=== PATIENT | female | born 1950 | race Caucasian/White ===

== ENCOUNTER 2017-12-18 20:37 | Observation (INO) | payer OTHER, SELFPAY ==
[2017-12-18 21:02] VITALS: BP 125/75; PULSE 79; RESP 16; O2SAT 96
--- NOTE | 2017-12-18 21:03 | DI.RAD.S_ITS ---
PROCEDURE: XR CHEST 1V INDICATIONS: chest pain TECHNIQUE: One view of the chest was acquired. COMPARISON: None. FINDINGS: Surgical changes and devices: None. Lungs and pleura: No pleural effusions or pneumothorax. Lungs are clear. Mediastinum: Mediastinal contours appear normal. Heart size is normal. Bones and chest wall: No suspicious bony lesions. Overlying soft tissues appear unremarkable. IMPRESSION: No acute cardiopulmonary findings. Dictated by: Yandy Head M.D. on 12/18/2017 at 21:41 Approved by: Yandy Head M.D. on 12/18/2017 at 21:42
[2017-12-18 21:33] LABS: Alanine Aminotransferase 29 IU/L (9-52); Albumin 4.6 g/dL (3.5-5.0); Albumin Globulin Ratio 1.4 (1.0-2.8); Alkaline Phosphatase 60 U/L (38-126); Aspartate Aminotransferase 26 IU/L (14-36); BUN Creatinine Ratio 22.9 (6-22); Bilirubin Total 0.3 mg/dL (0.2-1.3); Blood Urea Nitrogen 16 mg/dL (7-17); Calcium 9.6 mg/dL (8.4-10.2); Carbon Dioxide 25 mmol/L (22-32); Chloride 103 mmol/L (98-107); Creatine Kinase 73 U/L (30-135); Estimated Glomerular Filt Rate > 60.0 mL/min (>60); Globulin 3.2 g/dL (1.7-4.1); Glucose 153 mg/dL (80-110); HEMOLYSIS < 15 (0-50); Lipase 203 U/L (23-300); Potassium 3.3 mmol/L (3.4-5.1); Sodium 145 mmol/L (137-145); Total Protein 7.8 g/dL (6.3-8.2)
--- NOTE | 2017-12-18 21:36 | PC.NURSE ---
at time of exam, pt is resting comfortable, denies pain or discomfort, sinus sebastian on monitor, lungs clear/equal, no periph edema present, abd soft/nontender
[2017-12-18 21:39] LABS: Add Manual Diff / Slide Review NO; Basophils Percent Auto 1.3 % (0-2); Eosinophils Percent Auto 3.9 % (2-4); Hematocrit 40.3 % (36-46); Hemoglobin 13.9 g/dL (12.0-16.0); Lymphocytes Percent Auto 46.3 % (25-40); Mean Corpuscular HGB Conc 34.4 % (30-36); Mean Corpuscular Hemoglobin 30.1 PG (26-34); Mean Corpuscular Volume 87.5 fL (80-100); Monocytes Percent Auto 6.3 % (3-14); Neutrophils Absolute Auto 2700 /uL (3000-5900); Neutrophils Percent Auto 42.2 % (50-75); Platelet Count 238 X10^3/uL (150-400); Red Blood Cell Count 4.61 X10^6/uL (4.0-5.2); Red Cell Distribution Width 13.3 % (11.6-14.8); White Blood Cell Count 6.3 X10^3/uL (4.5-11.0)
[2017-12-18 21:43] LABS: Troponin I < 0.012 ng/mL (0.01-0.034)
[2017-12-18 21:46] VITALS: BP 129/82; PULSE 72; RESP 18; O2SAT 99
[2017-12-18] MEDS: ASPIRIN 81 MG TAB 324 MG PO (21:47)
[2017-12-18] MEDS: SODIUM CHLORIDE 0.9% 1,000 ML 150 ML IV (21:47)
[2017-12-18 22:02] VITALS: BP 130/75; PULSE 65; RESP 20; O2SAT 99
--- NOTE | 2017-12-18 22:17 | ED_ITS ---
HPI - Chest Pain General Chief Complaint: Chest Pain Stated Complaint: CHEST PAIN,AND STATES DIAPHORETIC Time Seen by Provider: 12/18/17 20:41 Source: patient Mode of arrival: ambulatory Limitations: no limitations History of Present Illness HPI narrative: Patient presents to the emergency department today with her in the chief complaint retrosternal chest pressure with slight radiation to her left anterior chest and diaphoresis with near syncope just prior to her arrival. Her symptoms lasted approximately 15 min and were essentially gone prior to her arrival. She denies any provocation or palliation of her pain. She denies any history of cardiac disease but did have a stroke a few years ago and received tPA, and in the and it was determined to be more likely a complex migraine variant. As the result she does NOT take aspirin, beta blockers or other medications MD complaint: chest pain Onset (ago): minute(s) Duration: constant Onset: during rest Pain location: substernal Severity: moderate Quality: tightness and heaviness Pain radiation: none Relieving factors: nothing Exacerbating factors: nothing Associated symptoms: nausea, diaphoresis and other (near syncope) Treatments prior to arrival chest pain: none Related Data Home Medications Medication Instructions Recorded Confirmed amoxicillin-pot clavulanate PO 12/18/17 Allergies Allergy/AdvReac Type Severity Reaction Status Date / Time No Known Drug Allergies Allergy Verified 12/18/17 21:05 Review of Systems Review of Systems All systems reviewed & are unremarkable except as noted in HPI and below Constitutional Denies chills, Reports excessive sweating, Denies fever(s), Denies lethargy and Denies weakness Eyes Denies change in vision, Denies eye discharge, Denies irritation and Denies loss of vision ENT Ears, Nose, Mouth, and Throat: Denies change in voice, Denies neck pain and Denies sore throat Cardiovascular Reports chest pain, Reports chest pain at rest, Denies irregular heart rhythm, Reports lightheadedness, Denies palpitations, Reports dyspnea, Denies dyspnea on exertion and Denies orthopnea Respiratory Denies cough, Reports dyspnea, Denies dyspnea on exertion and Denies wheezing Gastrointestinal Gastrointestinal: Denies abdominal pain, Denies change in bowel habits, Denies diarrhea, Denies nausea and Denies vomiting Genitourinary Denies hematuria, Denies flank pain, Denies urinary incontinence and Denies urinary urgency Musculoskeletal Denies neck pain Integumentary/Breasts Denies pruritus, Denies erythema, Denies rash and Denies wounds Neurologic Denies confusion, Denies loss of vision and Denies weakness Psychiatric Denies anxiety, Denies confusion, Denies depression, Denies homicidal ideation and Denies suicidal ideation Endocrine Reports excessive sweating and Denies palpitations Hematologic/Lymphatic Denies easy bruising Allergic/Immunologic Denies wheezing PFSH Medical History CVA (cerebral vascular accident) (Acute) Dental abscess (Acute) HLD (hyperlipidemia) (Acute) Social History household members: spouse, family and children Smoking Status: Never smoker alcohol intake: current Exam Narrative Exam Narrative: Pleasant 67-year-old female resting comfortably, in no obvious distress Initial Vital Signs Initial Vital Signs: Vital Signs Pulse Rate 79 12/18/17 21:02 Respiratory Rate 16 12/18/17 21:02 Blood Pressure 125/75 H 12/18/17 21:02 Pulse Oximetry 96 12/18/17 21:02 Const General: cooperative and well developed Nutritional Appearance: well nourished Orientation: alert, awake, oriented x3 and not confused HENMT Head: normocephalic and atraumatic Ears: external ears normal and TM's normal bilaterally Nose: external nose normal and No nasal discharge Face and sinus: sinuses nontender, face symmetric, no sinus tenderness and No dry mucous membranes Mouth: oral mucosae normal and moist mucous membranes Teeth and gingiva: dentition normal Throat: tonsils normal and uvula midline Eyes General: appearance normal, both eyes and all related structures Eyelids: eyelids normal Conjunctivae: conjunctivae normal Sclera: sclerae normal Pupils: PERRL EOM: EOM intact bilaterally Resp Effort & Inspection: normal respiratory effort, able to speak in complete sentences, no respiratory distress and no use of accessory muscles Auscultation: clear to auscultation bilaterally, no rales, no rhonchi and no wheezes GI Inspection: non-distended Palpation: soft, no hepatosplenomegaly, No guarding, No pulsatile mass and No tender Auscultation: normal bowel sounds Skin General: no rashes or lesions noted, No jaundice and No petechiae Extrem General: full ROM, no clubbing, cyanosis or edema, no pedal edema and no calf tenderness Psych Appearance: well kempt Mental Status: mental status grossly normal Attitude: cooperative Thought Content: normal and suicidality Judgment: judgment good Course Orders Ordered: ED Orders 12/18/17 21:00 Complete Blood Count AUTO DIFF Stat Comprehensive Metabolic Panel Stat Lipase Stat Troponin with CK Cardiac Panel Stat 12/18/17 21:03 XR chest 1V Stat 12/18/17 21:15 EKG-12 Lead Routine 12/19/17 05:00 Troponin I Stat Sodium Chloride (Normal Saline 0.9%) 1,000 mls @ 150 mls/hr IV CONT GRAHAM Last Infusion: 12/18/17 22:54 Dose: 0 mls/hr Admin: 12/18/17 21:47 Dose: 150 mls/hr Discontinued Medications Aspirin (Aspirin Chew) 324 mg PO NOW ONE Stop: 12/18/17 21:04 Last Admin: 12/18/17 21:47 Dose: 324 mg Reevaluation(s) Reevaluation #1: patient continues to be pain free, will contact hospitalist Consultations Consultation #1: Dr. Montalvo happy to accept patient on his service Vital Signs - 8 hr 12/18/17 21:02 12/18/17 21:46 12/18/17 22:02 Temperature Pulse Rate 79 72 65 Respiratory Rate 16 18 20 Blood Pressure 125/75 H Blood Pressure [Right Arm] 129/82 H 130/75 H Pulse Oximetry 96 99 99 12/18/17 22:45 12/18/17 23:35 Temperature 97.8 F 97.6 F Pulse Rate 66 71 Respiratory Rate 16 18 Blood Pressure 144/78 H 122/73 H Blood Pressure [Right Arm] Pulse Oximetry 95 95 MDM - Chest Pain Differential Diagnosis Likely pneumothorax, stable angina, unstable angina pectoris, atypical chest pain, st elevation myocardial infarction, costochondritis, chest pain and biliary colic Lab Data Result diagrams: 12/18/17 21:00 12/18/17 21:00 Lab Results 12/18/17 12/18/17 Range/Units 21:00 21:00 WBC 6.3 (4.5-11.0) X10^3/uL RBC 4.61 (4.0-5.2) X10^6/uL Hgb 13.9 (12.0-16.0) g/dL Hct 40.3 (36-46) % MCV 87.5 (80-100) fL MCH 30.1 (26-34) PG MCHC 34.4 (30-36) % RDW 13.3 (11.6-14.8) % Plt Count 238 (150-400) X10^3/uL Neut % (Auto) 42.2 L (50-75) % Lymph % (Auto) 46.3 H (25-40) % [place] % (Auto) 6.3 (3-14) % Eos % (Auto) 3.9 (2-4) % Baso % (Auto) 1.3 (0-2) % Neut # (Auto) 2700 L (2098-2317) /uL Sodium 145 (137-145) mmol/L Potassium 3.3 L (3.4-5.1) mmol/L Chloride 103 (98-107) mmol/L Carbon Dioxide 25 (22-32) mmol/L BUN 16 (7-17) mg/dL Creatinine 0.70 (0.52-1.04) mg/dL Estimated GFR > 60.0 (>60) mL/min BUN/Creatinine Ratio 22.9 H (6-22) Glucose 153 H (80-110) mg/dL Calcium 9.6 (8.4-10.2) mg/dL Total Bilirubin 0.3 (0.2-1.3) mg/dL AST 26 (14-36) IU/L ALT 29 (9-52) IU/L Alkaline Phosphatase 60 (38-126) U/L Total Creatine Kinase 73 (30-135) U/L Troponin I < 0.012 (0.01-0.034) ng/mL Total Protein 7.8 (6.3-8.2) g/dL Albumin 4.6 (3.5-5.0) g/dL Globulin 3.2 (1.7-4.1) g/dL Albumin/Globulin Ratio 1.4 (1.0-2.8) Lipase 203 (23-300) U/L Imaging Data Chest x-ray: Radiologist's impression: PROCEDURE: XR CHEST 1V INDICATIONS: chest pain TECHNIQUE: One view of the chest was acquired. COMPARISON: None. FINDINGS: Surgical changes and devices: None. Lungs and pleura: No pleural effusions or pneumothorax. Lungs are clear. Mediastinum: Mediastinal contours appear normal. Heart size is normal. Bones and chest wall: No suspicious bony lesions. Overlying soft tissues appear unremarkable. IMPRESSION: No acute cardiopulmonary findings. Dictated by: Yandy Head M.D. on 12/18/2017 at 21:41 Approved by: Yandy Head M.D. on 12/18/2017 at 21:42 ECG Data Attestation: I personally reviewed and interpreted this ECG as follows: Prior ECG tracings: not available for review Interpretation: EKG is normal sinus rhythm and free of any signs of ischemia or ectopy. MDM Narrative Medical decision making narrative: HEART Pathway for Early Discharge in Acute Chest Pain from [facility] on 12/19/2017 All calculations should be rechecked by clinician prior to use RESULT SUMMARY: 4 points HEART Pathway Score High risk 12?65% 30-day MACE Admit to hospital or observation. Further testing indicated. INPUTS: History ?> 2 = Highly suspicious EKG ?> 0 = Normal Age ?> 2 = ?65 Risk factors ?> 0 = No known risk factors Initial troponin ?> 0 = ?normal limit Discharge Plan Departure Patient Disposition: Admitted as Observation Clinical Impression: Chest pain, Acute hypokalemia Discharge Date/Time: 12/18/17 22:52 Interventions: ED Discharge Assessment Last Done: 12/18/17 22:52 Admit Date/Time: 12/18/17 22:24 Admit Provider: Mane Montalvo
[2017-12-18 22:45] VITALS: BP 144/78; PULSE 66; RESP 16; TEMP 36.6; O2SAT 95
[2017-12-18 23:35] VITALS: BP 122/73; PULSE 71; RESP 18; TEMP 36.4; O2SAT 95
--- NOTE | 2017-12-18 23:50 | PC.NURSE ---
ADMISSION Received pt at approximately 2245 via [employer], accompanied by ED RN. gina Berumen cooperative. SBA with ambulation. pt currently denies any chest pain or shortness or breath. telemetry monitoring maintained, SB per report from ED RN. pt oriented to room and call light.
[2017-12-19 04:35] VITALS: BP 116/70; PULSE 76; RESP 20; TEMP 36.1; O2SAT 97
[2017-12-19 06:17] LABS: Troponin I < 0.012 ng/mL (0.01-0.034)
[2017-12-19 08:00] VITALS: BP 128/79; PULSE 59; RESP 18; TEMP 36.3; O2SAT 100
[2017-12-19] MEDS: SODIUM CHLORIDE 0.9% 1,000 ML 150 ML IV (08:08)
--- NOTE | 2017-12-19 09:15 | P.HP_ITS ---
History of Present Illness Date Patient Seen: 12/19/17 Time Patient Seen: 08:30 Chief complaint: CHEST PAIN,AND STATES DIAPHORETIC Narrative: The patient is visiting her children and new grandchild locally, residing most of the time in [place], having just bought a house here over the weekend with her , and had just finished eating dinner at a local restaurant when she experienced 7/10 central chest pressure, radiating to her back with associated diaphoresis. There was no shortness of breath, nausea or exertional symptoms though she felt like she might need to have diarrhea, though has not had any diarrheal symptoms. She excused herself to go to the bathroom where symptoms lasted about 10 min before abating completely. Her was driving her back to the hotel and decided to take her to the emergency department for evaluation. She has not had similar chest pain episodes in the past though has had several episodes of vasovagal syncope after eating meals. She states a history of thrombolytic therapy last year, 3 weeks after her mother's , after presenting with stroke-like symptoms, which she had left facial weakness, left arm weakness and speech difficulty. She states that after thrombolytics therapy she was found to have a small narrowing, though there was some controversy as to whether she may have had an atypical migraine, however supportive of stroke she had ongoing left arm weakness several months and word-finding difficulty lasting to the present time. Emergency department evaluation was unremarkable. She has had no further chest pain overnight since admission on observation status. Patient History Medical History CVA (cerebral vascular accident) (Acute) Dental abscess (Acute) HLD (hyperlipidemia) (Acute) Family & Social History Family History: Reviewed 12/19/17 by Antwan Ramesh MD Social History: household members spouse,family,children Prior Living Arrangements House Safety & Behavioral: Feels Safe in Current Yes Environment Been Physically Hurt or No Threatened By a Person Suicidal Ideation Description None Tobacco & Substance use: Smoking Status Never smoker alcohol intake current alcohol intake frequency 0-2 drinks per day Substance Use Type does not use Meds Home Medications Medication Instructions Recorded Confirmed Type amoxicillin-pot clavulanate 1 dose PO DIRECTED 12/18/17 12/19/17 History Allergies Allergy/AdvReac Type Severity Reaction Status Date / Time No Known Drug Allergies Allergy Verified 12/18/17 21:05 Review of Systems Review of Systems All systems reviewed & are unremarkable except as noted in HPI and below ENT Ears, Nose, Mouth, and Throat: Yes dental pain Exam Vital Signs (past 8 hours): Vital Signs - 8 hr 3 12/19/17 04:35 12/19/17 08:00 Temperature 97 F L 97.4 F L Pulse Rate 76 59 L Respiratory Rate 20 18 Blood Pressure 116/70 128/79 H Pulse Oximetry 97 100 Pulse Oximetry 100 Oxygen Delivery Method Room Air Narrative Exam Narrative: General: Healthy-appearing female, appears comfortable in no apparent distress HEENT: Pupils equal round reactive, extraocular moves intact, mucous membranes pink and moist Neck: Supple, no audible res Lungs: Clear to auscultation Cardiac: Regular rate and rhythm, with grade 1 to 2/6 systolic ejection murmur at right upper sternal border Abdomen: Soft, nontender, nondistended Extremities: Without edema Vascular: 2+ DP/PT pulses Neurologic: Alert, oriented, normal facial symmetry, cranial nerves 2-12, motor , sensory, cerebellar grossly nonfocal, gait not tested Dermatologic: No rash or skin lesions Objective Imaging Chest x-ray: Radiologist's impression: No acute cardiopulmonary findings. ECG: Sinus rhythm at 73 beats per minute, nonspecific T-wave changes, no acute ischemic changes Exercise tolerance test: Patient exercised 9 min 26 sec, stopping due to dyspnea, with peak heart rate 153 beats per minute (100% of predicted), with no chest pain, ischemic changes or arrhythmias. Impression: Normal exercise tolerance test with excellent exercise capacity, and no reproducible symptoms. Labs Result Diagrams: 12/18/17 21:00 12/18/17 21:00 Labs: Laboratory Results - last 24 hr 12/18/17 12/18/17 12/19/17 21:00 21:00 05:35 WBC 6.3 RBC 4.61 Hgb 13.9 Hct 40.3 MCV 87.5 MCH 30.1 MCHC 34.4 RDW 13.3 Plt Count 238 Neut % (Auto) 42.2 L Lymph % (Auto) 46.3 H [place] % (Auto) 6.3 Eos % (Auto) 3.9 Baso % (Auto) 1.3 Neut # (Auto) 2700 L Sodium 145 Potassium 3.3 L Chloride 103 Carbon Dioxide 25 BUN 16 Creatinine 0.70 Estimated GFR > 60.0 BUN/Creatinine Ratio 22.9 H Glucose 153 H Calcium 9.6 Total Bilirubin 0.3 AST 26 ALT 29 Alkaline Phosphatase 60 Total Creatine Kinase 73 Troponin I < 0.012 < 0.012 Total Protein 7.8 Albumin 4.6 Globulin 3.2 Albumin/Globulin Ratio 1.4 Lipase 203 Assessment & Plan (1) HLD (hyperlipidemia): Current visit: No Status: Acute (2) Dental abscess: Current visit: No Status: Acute (3) CVA (cerebral vascular accident): Current visit: No Status: Acute Plan: 1. Chest pain, likely due to associated vasovagal reaction. The patient has had several similar episodes in the past, and likely had associated gastroesophageal reflux disease and/or esophageal spasm accounting for her symptoms. She has ruled out for myocardial infarction and has a normal maximal stress test today with no inducible changes or reproducible symptoms. She is medically clear for discharge with outpatient follow-up to her primary care provider. 2. Cerebrovascular disease. She has elected not to take aspirin or statin therapy. These are offered at this point but she declines and wishes to follow up with her primary care provider to review. 3. Dental abscess. Does not appear related to current symptoms. Continue antibiotics as prescribed. 4. Disposition: The patient is admitted to observation status. She is discharged home on her usual medications to follow up with her primary care provider in [place] [facility] upon her return. She is cleared medically to resume her usual activities Quality VTE Deep Vein Thrombosis/Pulmonary Embolism Present on Admission: No
--- NOTE | 2017-12-19 10:21 | CM.DANOTE ---
DCP/Assessment: Reviewed chart. Patient is a 67yr old female admitted under OBS status to [facility] with chest pain. Primary payor is 1)[employer]. PCP is Dr. Krishnan in [place]. Met with patient explained CM/SW role. Patient alert and oriented at time of visit. Pt. reports that she is completely I in all ADL's. Patient resides in [place] with her spouse/[place]. Pt. visiting her son and his family for the weekend. Patient initially planned to return to [place] today. Pt. undergoing stress test today, if negative it is anticipated that patient will discharge. Patient reports that her son can pick her up and she does not anticipate any d/c planning needs. P: Home today if stable. KOLBY Marquez
--- NOTE | 2017-12-19 10:41 | PC.NURSE ---
Day shift: Pt off unit for cardiac test at approx 1025. VS stable. Bryan HR 55. No chest pain and no nausea. Taken down in WC by
--- NOTE | 2017-12-19 10:55 | PC.NURSE ---
Day shift: Pt back to room at 1055. Dr Mccracken will d/c her. Awaiting the order to work on paperwork.
--- NOTE | 2017-12-19 11:42 | PC.NURSE ---
Day shift: Left unit at approx 1140. Paper work signed and has all personal belongings. All questions answered. Left w/ family in private vehicle. She walked out with this telegraphic typewriter repairer by her side and her family.
== END 2017-12-19 11:44 | disposition home or self-care (01) ==
LOC: ED 22:21 → AC 22:27
PROVIDERS: Admitting Provider Internal Medicine; Emergency Provider Emergency Medicine; Visit Provider Internal Medicine
DX: R07.9 Chest pain, unspecified (principal); R61 Generalized hyperhidrosis; E78.5 Hyperlipidemia, unspecified; Z86.73 Personal history of transient ischemic attack (TIA), and cerebral infarction without residual deficits
CPT/HCPCS: 36415; 71045; 80053; 82550; 82553; 83690; 84484; 85025; 93005; 93016; 93017; 93018; 96360; 99283; 99285; G0378

== ENCOUNTER → 2018-07-17 14:01 | Outpatient (CLI) | payer OTHER, SELFPAY ==
--- NOTE | 2018-07-17 14:07 | DI.RAD.S_ITS ---
PROCEDURE: XR CHEST 2V INDICATIONS: cough TECHNIQUE: 2 views of the chest were acquired. COMPARISON: [facility], CR, XR CHEST 1V, 12/18/2017, 21:21. FINDINGS: Surgical changes and devices: None. Lungs and pleura: No pleural effusions or pneumothorax. Lungs are clear. Mediastinum: Mediastinal contours are normal. Heart size is normal. Bones and chest wall: No suspicious bony abnormalities. Soft tissues appear unremarkable. IMPRESSION: Negative chest. No acute cardiopulmonary process is evident. Dictated by: Freeman Mccormick M.D. on 07/17/2018 at 13:33 Approved by: Freeman Mccormick M.D. on 07/17/2018 at 13:36
== END ==
PROVIDERS: Visit Provider Physician Assistant
DX: R05 Cough (principal)
CPT/HCPCS: 71046

== ENCOUNTER → 2018-11-29 12:41 | Outpatient (CLI) | payer MEDICARE, OTHER, SELFPAY | PROVIDERS: PCP Nurse Practitioner Family; Visit Provider Nurse Practitioner Family | DX: E07.9 Disorder of thyroid, unspecified (principal); Z78.0 Asymptomatic menopausal state; Z87.891 Personal history of nicotine dependence | CPT/HCPCS: 77080 ==

== ENCOUNTER → 2018-11-30 08:42 | Outpatient (CLI) | payer MEDICARE, OTHER, SELFPAY ==
[2018-11-30 10:45] LABS: BUN Creatinine Ratio 27.1 (6-22); Blood Urea Nitrogen 19 mg/dL (7-17); Calcium 9.6 mg/dL (8.4-10.2); Carbon Dioxide 29 mmol/L (22-32); Chloride 101 mmol/L (98-107); Cholesterol 260 mg/dL (140-199); Estimated Glomerular Filt Rate > 60.0 mL/min (>60); Glucose 79 mg/dL (80-110); HDL Cholesterol 63 mg/dL (40-60); HEMOLYSIS < 15 (0-50); LDL Cholesterol Calculated 176 mg/dL (<100); Potassium 4.5 mmol/L (3.4-5.1); Sodium 140 mmol/L (137-145); Triglycerides 105 mg/dL (35-150)
[2018-11-30 11:02] LABS: Vitamin D 25 Hydroxy (D3) 29.8 ng/mL (30.0-100.0)
[2018-11-30 11:04] LABS: Free T4, Direct Thyroxine 0.79 ng/dL (0.78-2.19)
[2018-11-30 11:17] LABS: Thyroid Stimulating Hormone 1.96 uIU/mL (0.47-4.68)
== END ==
PROVIDERS: PCP Nurse Practitioner Family; Visit Provider Nurse Practitioner Family
DX: E55.9 Vitamin D deficiency, unspecified (principal); E78.2 Mixed hyperlipidemia; E03.9 Hypothyroidism, unspecified; R35.0 Frequency of micturition
CPT/HCPCS: 36415; 80048; 80061; 82306; 84439; 84443

== ENCOUNTER 2019-03-17 00:09 | Emergency (ER) | payer MEDICARE, OTHER, SELFPAY ==
[2019-03-17 00:15] VITALS: BP 119/63; PULSE 72; RESP 18; TEMP 36.4; O2SAT 94
--- NOTE | 2019-03-17 00:43 | ED.ABDPAIN ---
HPI - Abdominal Pain General Chief Complaint: Abdominal Pain Stated Complaint: ABD pain, N/V Time Seen by Provider: 03/17/19 00:33 Source: patient, family () and EMS Mode of arrival: EMS Limitations: no limitations History of Present Illness HPI narrative: 68-year-old female comes to the emergency department with complaint of lower abdominal pain in the left lower quadrant. Patient states it has been going on off for several weeks. She has noticed a lot of urinary frequency over the last several days. She has not had fevers or chills she did have some nausea and vomiting this evening. She is denying any dysuria but does have a sense of urgency and incomplete emptying. She has had a had some on bowel movements. She states that she has had a bowel movement for about 12-24 hours. She states that the stools have sometimes been dark although not frankly black, she states that she has not noticed blood but she has been checking. She states that she has had multiple abdominal surgeries for scarring in removal of adhesions. She does have a history of stroke. Related Data Home Medications Medication Instructions Recorded Confirmed amoxicillin-pot clavulanate 1 dose PO DIRECTED 12/18/17 12/19/17 Previous Rx's Medication Instructions Recorded azithromycin 250 mg tablet See Rx Instructions PO .COMPLEX #6 07/17/18 tab ciprofloxacin HCl 500 mg PO Q12H #20 tab 03/17/19 metronidazole [Flagyl] 500 mg PO TID #30 tab 03/17/19 Allergies Allergy/AdvReac Type Severity Reaction Status Date / Time No Known Drug Allergies Allergy Verified 07/17/18 12:53 PFSH Medical History CVA (cerebral vascular accident) (Acute) Dental abscess (Acute) HLD (hyperlipidemia) (Acute) Family History Father No problems noted. Mother No problems noted. Social History household members: spouse, family and children Smoking Status: Never smoker alcohol intake: current Family History Father No problems noted. Mother No problems noted. Social History household members: spouse, family and children Smoking Status: Former smoker alcohol intake: current Exam Narrative Exam Narrative: GENERAL: Alert and oriented x three, well-nourished elderly female in mild distress. Patient is not diaphoretic. HEENT: Head normocephalic, atraumatic, EOMI, pupils reactive, face symmetric, moist mucous membranes NECK: Supple, full range of motion CARDIOVASCULAR: Regular rate and rhythm without murmurs, rubs or gallops. RESPIRATORY: Breath sounds equal bilaterally, no wheezes rales or rhonchi. ABDOMEN: Soft, nontender to palpation. Normoactive bowel sounds all 4 quadrants. No guarding or rebound, rigidity, no mass : No CVA tenderness EXTREMITIES: Normal range of motion, no clubbing or edema. Neurovascularly intact NEUROLOGICAL: Cranial nerves II through XII grossly intact. Moving all extremities SKIN: Warm, dry, no petechiae, no rashes or lesions. Initial Vital Signs Initial Vital Signs: Vital Signs Temperature 97.6 F 03/17/19 00:15 Pulse Rate 72 03/17/19 00:15 Respiratory Rate 18 03/17/19 00:15 Blood Pressure 119/63 03/17/19 00:15 Pulse Oximetry 94 03/17/19 00:15 Course Orders Ordered: ED Orders 03/17/19 00:40 Complete Blood Count AUTO DIFF Stat Comprehensive Metabolic Panel Stat Lipase Stat Troponin & CK Cardiac Panel Stat 03/17/19 00:53 Urinalysis and Microscopic Stat Urine Culture Stat 03/17/19 01:33 CT kidney ureter bladder (KUB) Stat EKG-12 Lead Stat Discontinued Medications Al Hydrox/Mg Hydrox/Simethicone 20 ml/ Lidocaine HCl 15 ml 0 ml PO NOW ONE Stop: 03/17/19 01:34 Last Admin: 03/17/19 01:45 Dose: 15 ml Documented by: ANKITA Sodium Chloride (Normal Saline 0.9%) 1,000 mls @ 1,000 mls/hr IV BOLUS ONE Stop: 03/17/19 01:41 Last Infusion: 03/17/19 02:08 Dose: 0 mls/hr Documented by: Admin: 03/17/19 01:10 Dose: 1,000 mls/hr Documented by: ANKITA Levofloxacin (Levaquin) 500 mg PO NOW ONE Stop: 03/17/19 03:53 Last Admin: 03/17/19 04:01 Dose: 500 mg Documented by: ANKITA Metronidazole (Metronidazole) 500 mg PO NOW ONE Stop: 03/17/19 03:53 Last Admin: 03/17/19 04:01 Dose: 500 mg Documented by: ANKITA Vital Signs Vital signs: Vital Signs - 8 hr 03/17/19 00:15 03/17/19 00:45 03/17/19 03:26 Temperature 97.6 F 98.4 F Pulse Rate 72 72 80 Respiratory Rate 18 18 16 Blood Pressure 128/72 Blood Pressure [Right Arm] 119/63 121/83 Pulse Oximetry 94 96 94 MDM - Abdominal Pain Lab Data Attestation: I reviewed the patient's lab results. Result diagrams: 03/17/19 00:40 03/17/19 00:40 Labs: Lab Results 03/17/19 03/17/19 03/17/19 Range/Units 00:40 00:40 00:40 WBC 8.2 (4.5-11.0) X10^3/uL RBC 4.37 (4.0-5.2) X10^6/uL Hgb 13.1 (12.0-16.0) g/dL Hct 38.1 (36-46) % MCV 87.2 (80-100) fL MCH 29.9 (26-34) PG MCHC 34.3 (30-36) % RDW 13.0 (11.6-14.8) % Plt Count Not Reportable Neut % (Auto) 68.2 (50-75) % Lymph % (Auto) 20.0 L (25-40) % [place] % (Auto) 7.9 (3-14) % Eos % (Auto) 3.1 (2-4) % Baso % (Auto) 0.8 (0-2) % Neut # (Auto) 5600 (3536-7155) /uL Lymph # (Auto) 1600 (3936-2536) /uL [place] # (Auto) 600 (0-900) /uL Eos # (Auto) 300 (0-450) /uL Baso # (Auto) 100 (0-100) /uL Sodium 141 (137-145) mmol/L Potassium 3.7 (3.4-5.1) mmol/L Chloride 100 (98-107) mmol/L Carbon Dioxide 30 (22-32) mmol/L BUN 21 H (7-17) mg/dL Creatinine 0.60 (0.52-1.04) mg/dL Estimated GFR > 60.0 (>60) mL/min BUN/Creatinine Ratio 35.0 H (6-22) Glucose 130 H (80-110) mg/dL Calcium 9.3 (8.4-10.2) mg/dL Total Bilirubin 0.3 (0.2-1.3) mg/dL AST 28 (14-36) IU/L ALT 25 (9-52) IU/L Alkaline Phosphatase 73 (38-126) U/L Total Creatine Kinase 80 (30-135) U/L CK-MB (CK-2) TNP CK-MB (CK-2) Rel Index TNP Troponin I < 0.012 (0.01-0.034) ng/mL Total Protein 7.5 (6.3-8.2) g/dL Albumin 4.2 (3.5-5.0) g/dL Globulin 3.3 (1.7-4.1) g/dL Albumin/Globulin Ratio 1.3 (1.0-2.8) Lipase 173 (23-300) U/L Urine Color Urine Appearance Urine pH (4.5-8.0) Ur Specific [place] (1.000-1.035) Urine Protein (Negative) Urine Glucose (UA) (Negative) g/dL Urine Ketones (NEGATIVE) Urine Occult Blood (Negative) Urine Nitrate (Negative) Urine Bilirubin (NEGATIVE) Urine Urobilinogen (0.2) E.U./dL Ur Leukocyte Esterase (NEGATIVE) Urine RBC (0-5/HPF) Urine WBC (0-5/HPF) Ur Squamous Epith Cells (0-5/HPF) Urine Bacteria (None) Hyaline Casts (None) Urine Mucus (Negative) Ur Culture Indicated? 03/17/19 Range/Units 00:53 WBC (4.5-11.0) X10^3/uL RBC (4.0-5.2) X10^6/uL Hgb (12.0-16.0) g/dL Hct (36-46) % MCV (80-100) fL MCH (26-34) PG MCHC (30-36) % RDW (11.6-14.8) % Plt Count Neut % (Auto) (50-75) % Lymph % (Auto) (25-40) % [place] % (Auto) (3-14) % Eos % (Auto) (2-4) % Baso % (Auto) (0-2) % Neut # (Auto) (1249-5039) /uL Lymph # (Auto) (2526-5089) /uL [place] # (Auto) (0-900) /uL Eos # (Auto) (0-450) /uL Baso # (Auto) (0-100) /uL Sodium (137-145) mmol/L Potassium (3.4-5.1) mmol/L Chloride (98-107) mmol/L Carbon Dioxide (22-32) mmol/L BUN (7-17) mg/dL Creatinine (0.52-1.04) mg/dL Estimated GFR (>60) mL/min BUN/Creatinine Ratio (6-22) Glucose (80-110) mg/dL Calcium (8.4-10.2) mg/dL Total Bilirubin (0.2-1.3) mg/dL AST (14-36) IU/L ALT (9-52) IU/L Alkaline Phosphatase (38-126) U/L Total Creatine Kinase (30-135) U/L CK-MB (CK-2) CK-MB (CK-2) Rel Index Troponin I (0.01-0.034) ng/mL Total Protein (6.3-8.2) g/dL Albumin (3.5-5.0) g/dL Globulin (1.7-4.1) g/dL Albumin/Globulin Ratio (1.0-2.8) Lipase (23-300) U/L Urine Color Yellow Urine Appearance Clear Urine pH 5.5 (4.5-8.0) Ur Specific [place] 1.025 (1.000-1.035) Urine Protein Trace H (Negative) Urine Glucose (UA) Negative (Negative) g/dL Urine Ketones Trace H (NEGATIVE) Urine Occult Blood 1+ H (Negative) Urine Nitrate Negative (Negative) Urine Bilirubin Negative (NEGATIVE) Urine Urobilinogen 1.0 (0.2) E.U./dL Ur Leukocyte Esterase 1+ H (NEGATIVE) Urine RBC 0-1/hpf (0-5/HPF) Urine WBC 10-30/hpf H (0-5/HPF) Ur Squamous Epith Cells 1-5 /hpf (0-5/HPF) Urine Bacteria Few (2-10) H (None) Hyaline Casts 0-1/lpf (None) Urine Mucus 3+ H (Negative) Ur Culture Indicated? Specimen cultured Imaging Data CT scan - abdomen: Radiologist's impression: Fat stranding adjacent to the mid sigmoid diverticulum, multiple other diverticuli noticed. No evidence of perforation or pneumoperitoneum. No abscess. Otherwise no abnormality on CT. [facility] Narrative Medical decision making narrative: Patient's CT shows diverticulitis, patient also has had some urinary symptoms so cover her with Cipro as well as Flagyl. Patient states she drinks alcohol once nightly but can stop it easily. Plan for patient to follow up with primary care, she is feeling much more comfortable at this time. Discharge Plan Departure Patient Disposition: Home Clinical Impression: Diverticulitis Discharge Date/Time: 03/17/19 04:23 Instructions: DI for Diverticulitis Activity Restrictions/Additional Instructions: Follow-up with your primary care physician in the next week for recheck. Start antibiotics and continue until gone. Your prescription was sent to [facility] in [place]. You may take Tylenol up to 1000mg every 8 hours as needed and/or Ibuprofen up to 800mg every 8 hours. Return to the Emergency room for fevers greater than 100.4 F, rapidly worsening symptoms, persistent vomiting, worsening abdominal pain, lightheadedness, passing out, new chest pain or shortness of breath. Prescriptions: New ciprofloxacin HCl 500 mg tablet 500 mg PO Q12H Qty: 20 RF: 0 metronidazole [Flagyl] 500 mg tablet 500 mg PO TID Qty: 30 RF: 0 No Action azithromycin 250 mg tablet See Rx Instructions PO .COMPLEX Qty: 6 RF: 0 amoxicillin-pot clavulanate 875-125 mg tablet 1 dose PO DIRECTED RF: 0 Referrals: Brando Schmidt ARNP [Primary Care Provider] -
[2019-03-17 00:45] VITALS: BP 128/72; PULSE 72; RESP 18; TEMP 36.9; O2SAT 96
[2019-03-17 01:04] LABS: Appearance Urine UA CLEAR; Bilirubin Urine UA NEGATIVE (NEGATIVE); Color Urine UA YELLOW; Glucose Urine UA NEGATIVE (Negative); Ketones Urine UA TRACE (NEGATIVE); Leukocyte Esterase Urine UA 1+ (NEGATIVE); Nitrite Urine UA NEGATIVE (Negative); Occult Blood Urine UA 1+ (Negative); Protein Urine UA TRACE (Negative); Specific Gravity Urine UA 1.025 (1.000-1.035); pH Urine UA 5.5 (4.5-8.0)
[2019-03-17 01:04] LABS: Add Manual Diff / Slide Review NO; Basophils Absolute Auto 100 /uL (0-100); Basophils Percent Auto 0.8 % (0-2); Eosinophils Absolute Auto 300 /uL (0-450); Eosinophils Percent Auto 3.1 % (2-4); Hematocrit 38.1 % (36-46); Hemoglobin 13.1 g/dL (12.0-16.0); Lymphocytes Absolute Auto 1600 /uL (1100-4500); Mean Corpuscular HGB Conc 34.3 % (30-36); Mean Corpuscular Hemoglobin 29.9 PG (26-34); Mean Corpuscular Volume 87.2 fL (80-100); Monocytes Absolute Auto 600 /uL (0-900); Monocytes Percent Auto 7.9 % (3-14); Neutrophils Absolute Auto 5600 /uL (1500-7000); Neutrophils Percent Auto 68.2 % (50-75); Red Blood Cell Count 4.37 X10^6/uL (4.0-5.2)
[2019-03-17 01:05] LABS: Alanine Aminotransferase 25 IU/L (9-52); Albumin 4.2 g/dL (3.5-5.0); Albumin Globulin Ratio 1.3 (1.0-2.8); Alkaline Phosphatase 73 U/L (38-126); Aspartate Aminotransferase 28 IU/L (14-36); Bilirubin Total 0.3 mg/dL (0.2-1.3); Blood Urea Nitrogen 21 mg/dL (7-17); Calcium 9.3 mg/dL (8.4-10.2); Carbon Dioxide 30 mmol/L (22-32); Chloride 100 mmol/L (98-107); Estimated Glomerular Filt Rate > 60.0 mL/min (>60); Globulin 3.3 g/dL (1.7-4.1); Glucose 130 mg/dL (80-110); HEMOLYSIS 24 (0-50); Lipase 173 U/L (23-300); Potassium 3.7 mmol/L (3.4-5.1); Sodium 141 mmol/L (137-145); Total Protein 7.5 g/dL (6.3-8.2)
[2019-03-17] MEDS: SODIUM CHLORIDE 0.9% 1,000 ML 1000 ML IV (01:10)
[2019-03-17 01:28] LABS: Bacteria Urine Few (2-10); Culture Indicated Urine Specimen Cultured; Hyaline Casts Urine 0-1/LPF; Mucus Urine 3+ (Negative); RBC Urine 0-1/HPF (0-5/HPF); Squamous Epithelial Cell Urine 1-5 /HPF (0-5/HPF); WBC Urine 10-30/HPF (0-5/HPF)
--- NOTE | 2019-03-17 01:33 | DI.CT.S_ITS ---
PROCEDURE: CT KIDNEY URETER BLADDER (KUB) INDICATIONS: left lower quad pain, frequency, possible stone, colitis, uti TECHNIQUE: Noncontrast 5 mm thick sections acquired from the diaphragms to the symphysis. 5 mm thick coronal and sagittal reformats were then performed. For radiation dose reduction, the following was used: automated exposure control, adjustment of mA and/or kV according to patient size. COMPARISON: None. FINDINGS: Image quality: Excellent. Lung bases: Lung bases are clear. Heart size is normal. Mammoplasty implants are incidentally noted. Urinary system: Both kidneys are normal in size. No kidney stones. No hydronephrosis or perinephric fat stranding. Both ureters appear non-dilated throughout their expected courses. Bladder wall thickness is normal; no calcified bladder stones. Other solid organs: Liver is normal in size. Gallbladder wall is not thickened. Pancreas is normal in contours. Spleen is normal in size. No adrenal nodules. Peritoneum and bowel: There is mild focal wall thickening seen involving the sigmoid colon, with mild surrounding inflammatory change. Diverticulosis is seen within this region. No loculated abscess collection is seen. No free air is seen. No bowel wall thickening is seen elsewhere. No dilated loops of small bowel are seen. A moderate amount of stool is seen within the colon. Incidental note is made of a normal-appearing appendix. Nodes and vessels: No retroperitoneal or mesenteric adenopathy by size criteria. Aorta and inferior vena cava are normal in caliber. Atherosclerotic calcification is noted. Abdominal wall: No ventral hernias. Pelvis: No free pelvic fluid. No inguinal hernias or adenopathy. Bones: No suspicious bony lesions. No vertebral body compression fractures. Degenerative changes are seen, including focal L5-S1 degenerative change. IMPRESSION: Mild sigmoid diverticulitis. No findings of perforation or abscess. No kidney stones or hydronephrosis can be seen. There is a moderate amount of stool seen within the colon. Please correlate with an underlying history of constipation. No bladder wall thickening is seen. Incidental note is made of: Mammoplasty implants Normal appendix Focal L5-S1 degenerative change Note: No significant discrepancy from the preliminary report. Dictated by: Adebayo Beck M.D. on 03/17/2019 at 8:35 Approved by: Adebayo Beck M.D. on 03/17/2019 at 8:39
[2019-03-17] MEDS: MAG HYDROX/ALUMINUM/SIMETH SUS 20 ML, LIDOCAINE VISCOUS 2% 15 ML PO (01:45)
[2019-03-17 01:54] LABS: Creatine Kinase 80 U/L (30-135)
[2019-03-17 02:04] LABS: White Blood Cell Count 8.2 X10^3/uL (4.5-11.0)
[2019-03-17 02:07] LABS: Troponin I < 0.012 ng/mL (0.01-0.034)
[2019-03-17 03:26] VITALS: BP 121/83; PULSE 80; RESP 16; O2SAT 94
[2019-03-17] MEDS: levoFLOXacin 250 MG TABLET 500 MG PO (04:01)
[2019-03-17] MEDS: metroNIDAZOLE 250 MG TABLET 500 MG PO (04:01)
== END 2019-03-17 04:23 | disposition home or self-care (01) ==
PROVIDERS: Emergency Provider Emergency Medicine; PCP Nurse Practitioner Family
DX: K57.92 Diverticulitis of intestine, part unspecified, without perforation or abscess without bleeding (principal)
CPT/HCPCS: 74176; 80053; 81001; 82550; 83690; 84484; 85025; 87086; 93005; 96360; 99283; 99285

== ENCOUNTER → 2019-03-27 09:53 | Outpatient (CLI) | payer MEDICARE, OTHER, SELFPAY ==
[2019-03-27 10:42] LABS: Add Manual Diff / Slide Review NO; Basophils Absolute Auto 100 /uL (0-100); Basophils Percent Auto 1.3 % (0-2); Eosinophils Absolute Auto 100 /uL (0-450); Eosinophils Percent Auto 2.3 % (2-4); Hematocrit 38.7 % (36-46); Hemoglobin 12.9 g/dL (12.0-16.0); Lymphocytes Absolute Auto 1600 /uL (1100-4500); Lymphocytes Percent Auto 29.1 % (25-40); Mean Corpuscular HGB Conc 33.5 % (30-36); Mean Corpuscular Hemoglobin 29.9 PG (26-34); Mean Corpuscular Volume 89.3 fL (80-100); Monocytes Absolute Auto 500 /uL (0-900); Monocytes Percent Auto 8.5 % (3-14); Neutrophils Absolute Auto 3200 /uL (1500-7000); Neutrophils Percent Auto 58.8 % (50-75); Platelet Count 270 X10^3/uL (150-400); Red Blood Cell Count 4.33 X10^6/uL (4.0-5.2); Red Cell Distribution Width 13.4 % (11.6-14.8); White Blood Cell Count 5.4 X10^3/uL (4.5-11.0)
[2019-03-27 11:12] LABS: Erythrocyte Sedimentation Rate 18 MM/HR (0-20)
[2019-03-27 11:28] LABS: HEMOLYSIS < 15 (0-50); Iron 121 ug/dL (37-170)
[2019-03-27 11:35] LABS: C-Reactive Protein Quant 0.7 mg/dL (<1.0)
[2019-03-27 11:39] LABS: Percent Iron Saturation 47 % (15-50); Total Iron Binding Capacity 258 ug/dL (265-497); Transferrin 197 mg/dL (206-381)
== END ==
PROVIDERS: PCP Internal Medicine; Visit Provider Internal Medicine
DX: K55.9 Vascular disorder of intestine, unspecified (principal); K92.1 Melena
CPT/HCPCS: 36415; 82728; 83540; 83550; 85025; 85651; 86140

== ENCOUNTER 2019-03-30 21:15 | Inpatient (IN) | payer MEDICARE, SELFPAY ==
[2019-03-30 21:53] VITALS: BP 116/64; PULSE 52; RESP 22; TEMP 36.9; O2SAT 97; BMI 25.4
--- NOTE | 2019-03-30 22:03 | ED.ABDPAIN ---
HPI - Abdominal Pain General Chief Complaint: Abdominal Pain Stated Complaint: STOMACH PAIN Time Seen by Provider: 03/30/19 21:56 Source: patient Mode of arrival: ambulatory Limitations: no limitations History of Present Illness HPI narrative: 68-year-old female. Was seen here 2 weeks ago in the emergency department was diagnosed with diverticulitis after having left-sided abdominal pain. She was sent home on Cipro and Flagyl. She took a 10 day course of this and completed earlier this week. She states that her symptoms were improving however they did not completely resolved. She saw her primary doctor since this last visit. She has a referral in to see General surgery at the end of next week at [facility]. She returns today because earlier today she started having worsening left-sided abdominal pain. She states that it seems to come and go. When it is at its max it makes her very nauseous and diaphoretic but then improves. She has urgency to have bowel movements. She states that she goes and tries to have a bowel movement however nothing will come out. States yesterday she did have some dark-colored stools. Related Data Home Medications Medication Instructions Recorded Confirmed fluoxetine [Prozac] 10 mg PO DAILY 03/31/19 03/31/19 pantoprazole 40 mg PO DAILY 03/31/19 03/31/19 Allergies Allergy/AdvReac Type Severity Reaction Status Date / Time No Known Drug Allergies Allergy Verified 03/30/19 21:53 Review of Systems Constitutional Constitutional: Denies fever(s) ENT Ears, Nose, Mouth, and Throat: Denies odynophagia Cardiovascular Cardiovascular: Denies chest pain and Denies dyspnea Respiratory Respiratory: Denies dyspnea Gastrointestinal Gastrointestinal: Reports abdominal pain, Denies diarrhea, Reports nausea and Denies odynophagia Genitourinary Genitourinary: Denies dysuria Musculoskeletal Musculoskeletal: Denies myalgias and Denies arthralgias Integumentary/Breasts Skin/Breast: Denies lesions and Denies rash Neurologic Neurologic: Denies behavioral changes Psychiatric Psychiatric: Denies behavioral changes Hematologic/Lymphatic Hematologic/Lymphatic: Denies easy bleeding and Denies easy bruising [facility] Medical History CVA (cerebral vascular accident) (Acute) Dental abscess (Acute) Depression (Acute) Depression as late effect of cerebrovascular accident (CVA) (Acute) HLD (hyperlipidemia) (Acute) Family History Father No problems noted. Mother No problems noted. Social History household members: spouse and family Smoking Status: Former smoker alcohol intake: current Social History household members: spouse and family Smoking Status: Former smoker alcohol intake: current Exam Initial Vital Signs Initial Vital Signs: Vital Signs Temperature 98.4 F 03/30/19 21:53 Pulse Rate 52 L 03/30/19 21:53 Respiratory Rate 22 03/30/19 21:53 Blood Pressure 116/64 03/30/19 21:53 Pulse Oximetry 97 03/30/19 21:53 Const General: cooperative, healthy appearing, comfortable and well developed Orientation: alert and awake HENMT Head: normal to inspection and normocephalic Resp Effort & Inspection: normal respiratory effort Auscultation: clear to auscultation bilaterally Cardio Rate: regular rate Rhythm: regular rhythm GI Inspection: non-distended Palpation: soft, No firm and tender Skin Lesions: no lesions Rashes: no rashes Neuro General: alert and awake Cognition: normal cognition Speech: speech normal Extrem General: normal to inspection and capillary refill normal Psych Appearance: grossly normal and well kempt Course Orders Ordered: ED Orders 03/30/19 22:04 CT abdomen pelvis w con Stat 03/30/19 22:15 Complete Blood Count AUTO DIFF Stat Comprehensive Metabolic Panel Stat Lactate (Lactic Acid) Stat Lipase Stat Procalcitonin Stat 03/30/19 23:20 Urinalysis and Microscopic Stat Urine Culture Stat Ciprofloxacin (Cipro) 400 mg in 200 mls @ 200 mls/hr IV NOW GRAHAM Discontinued Medications Acetaminophen (Tylenol) 650 mg PO NOW ONE Stop: 03/30/19 22:04 Last Admin: 03/30/19 22:41 Dose: 650 mg Documented by: ELLEN Sodium Chloride (Normal Saline 0.9%) 1,000 mls @ 1,000 mls/hr IV BOLUS ONE Stop: 03/30/19 23:02 Last Infusion: 03/31/19 00:39 Dose: 1,000 mls/hr Documented by: Admin: 03/30/19 22:10 Dose: 1,000 mls/hr Documented by: MARLENY Metronidazole (Flagyl) 500 mg in 100 mls @ 100 mls/hr IV NOW ONE Stop: 03/31/19 02:19 Last Infusion: 03/31/19 01:42 Dose: 100 mls/hr Documented by: Admin: 03/31/19 01:31 Dose: 100 mls/hr Documented by: JANELLE Ondansetron HCl (Zofran) 4 mg IV NOW ONE Stop: 03/30/19 22:35 Last Admin: 03/30/19 22:41 Dose: 4 mg Documented by: ELLEN Vital Signs Vital signs: Vital Signs - 8 hr 03/30/19 21:53 03/31/19 00:53 Temperature 98.4 F Pulse Rate 52 L 66 Respiratory Rate 22 18 Blood Pressure 116/64 Blood Pressure [Right Arm] 105/57 L Pulse Oximetry 97 94 MDM - Abdominal Pain Lab Data Attestation: I reviewed the patient's lab results. Result diagrams: 03/30/19 22:15 03/30/19 22:15 Labs: Lab Results 03/30/19 03/30/19 03/30/19 Range/Units 22:15 22:15 22:15 WBC 7.6 (4.5-11.0) X10^3/uL RBC 4.42 (4.0-5.2) X10^6/uL Hgb 13.2 (12.0-16.0) g/dL Hct 39.0 (36-46) % MCV 88.3 (80-100) fL MCH 29.9 (26-34) PG MCHC 33.9 (30-36) % RDW 13.1 (11.6-14.8) % Plt Count 279 (150-400) X10^3/uL Neut % (Auto) 58.3 (50-75) % Lymph % (Auto) 27.5 (25-40) % [place] % (Auto) 10.0 (3-14) % Eos % (Auto) 3.0 (2-4) % Baso % (Auto) 1.2 (0-2) % Neut # (Auto) 4400 (8697-6675) /uL Lymph # (Auto) 2100 (7201-0153) /uL [place] # (Auto) 800 (0-900) /uL Eos # (Auto) 200 (0-450) /uL Baso # (Auto) 100 (0-100) /uL Sodium 140 (137-145) mmol/L Potassium 3.5 (3.4-5.1) mmol/L Chloride 104 (98-107) mmol/L Carbon Dioxide 29 (22-32) mmol/L BUN 28 H (7-17) mg/dL Creatinine 0.70 (0.52-1.04) mg/dL Estimated GFR > 60.0 (>60) mL/min BUN/Creatinine Ratio 40.0 H (6-22) Glucose 131 H (80-110) mg/dL Lactate (0.7-2.1) mmol/L Calcium 9.3 (8.4-10.2) mg/dL Total Bilirubin 0.2 (0.2-1.3) mg/dL AST 36 (14-36) IU/L ALT 17 (9-52) IU/L Alkaline Phosphatase 63 (38-126) U/L Total Protein 7.2 (6.3-8.2) g/dL Albumin 4.1 (3.5-5.0) g/dL Globulin 3.1 (1.7-4.1) g/dL Albumin/Globulin Ratio 1.3 (1.0-2.8) Lipase 206 (23-300) U/L Procalcitonin < 0.05 (<0.5) ng/mL Urine Color Urine Appearance Urine pH (4.5-8.0) Ur Specific [place] (1.000-1.035) Urine Protein (Negative) Urine Glucose (UA) (Negative) g/dL Urine Ketones (NEGATIVE) Urine Occult Blood (Negative) Urine Nitrate (Negative) Urine Bilirubin (NEGATIVE) Urine Urobilinogen (0.2) E.U./dL Ur Leukocyte Esterase (NEGATIVE) Urine RBC (0-5/HPF) Urine WBC (0-5/HPF) Ur Squamous Epith Cells (0-5/HPF) Calcium Oxalate Crystal Urine Bacteria (None) Hyaline Casts (None) Ur Culture Indicated? 03/30/19 03/30/19 Range/Units 22:15 23:20 WBC (4.5-11.0) X10^3/uL RBC (4.0-5.2) X10^6/uL Hgb (12.0-16.0) g/dL Hct (36-46) % MCV (80-100) fL MCH (26-34) PG MCHC (30-36) % RDW (11.6-14.8) % Plt Count (150-400) X10^3/uL Neut % (Auto) (50-75) % Lymph % (Auto) (25-40) % [place] % (Auto) (3-14) % Eos % (Auto) (2-4) % Baso % (Auto) (0-2) % Neut # (Auto) (9075-4705) /uL Lymph # (Auto) (1647-1391) /uL [place] # (Auto) (0-900) /uL Eos # (Auto) (0-450) /uL Baso # (Auto) (0-100) /uL Sodium (137-145) mmol/L Potassium (3.4-5.1) mmol/L Chloride (98-107) mmol/L Carbon Dioxide (22-32) mmol/L BUN (7-17) mg/dL Creatinine (0.52-1.04) mg/dL Estimated GFR (>60) mL/min BUN/Creatinine Ratio (6-22) Glucose (80-110) mg/dL Lactate 1.3 (0.7-2.1) mmol/L Calcium (8.4-10.2) mg/dL Total Bilirubin (0.2-1.3) mg/dL AST (14-36) IU/L ALT (9-52) IU/L Alkaline Phosphatase (38-126) U/L Total Protein (6.3-8.2) g/dL Albumin (3.5-5.0) g/dL Globulin (1.7-4.1) g/dL Albumin/Globulin Ratio (1.0-2.8) Lipase (23-300) U/L Procalcitonin (<0.5) ng/mL Urine Color Yellow Urine Appearance Clear Urine pH 5.5 (4.5-8.0) Ur Specific [place] 1.020 (1.000-1.035) Urine Protein Trace H (Negative) Urine Glucose (UA) Negative (Negative) g/dL Urine Ketones Negative (NEGATIVE) Urine Occult Blood Trace-lysed (Negative) Urine Nitrate Negative (Negative) Urine Bilirubin Negative (NEGATIVE) Urine Urobilinogen 0.2 (0.2) E.U./dL Ur Leukocyte Esterase 1+ H (NEGATIVE) Urine RBC None seen (0-5/HPF) Urine WBC 10-30/hpf H (0-5/HPF) Ur Squamous Epith Cells 1-5 /hpf (0-5/HPF) Calcium Oxalate Crystal Moderate H Urine Bacteria Few (2-10) H (None) Hyaline Casts 0-1/lpf (None) Ur Culture Indicated? Specimen cultured Imaging Data CT scan - abdomen: Radiologist's impression: Preliminary read There is nonspecific appearance of the colon including thickening of the descending colon, and mild sigmoid enhancement. Consider sequela of prior known ischemic colitis. MDM Narrative Medical decision making narrative: Patient is relatively nontoxic appearing. Her labs are fairly reassuring however the CT scan does show diffuse thickening of the colon especially in the descending colon. Given her history of ischemic colitis there is some concern about this. I did discuss the case with Dr. Dumont with general surgery who stated that there was not an emergent surgical issue apparent however he did recommend giving her antibiotics and admitting her to the hospital for observation under the medicine service for colitis. He agreed to consult tomorrow morning. I did discuss the case with the night hospitalist who will accept. Discussed admission with the patient and her expressed understanding and agreement. Discharge Plan Departure Patient Disposition: Admitted As Inpatient Clinical Impression: Colitis Discharge Date/Time: 03/31/19 01:44 Admit Date/Time: 03/31/19 01:23 Admit Provider: Zac Weston
--- NOTE | 2019-03-30 22:04 | DI.CT.S_ITS ---
PROCEDURE: CT ABDOMEN PELVIS W CON INDICATIONS: Left-sided abdominal pain TECHNIQUE: After the administration of intravenous contrast, 5 mm thick sections acquired from the diaphragm to the symphysis. 5 mm coronal and sagittal reformats were acquired. For radiation dose reduction, the following was used: automated exposure control, adjustment of mA and/or kV according to patient size. COMPARISON: , CT, CT KIDNEY URETER BLADDER (KUB), 03/17/2019, 1:47. FINDINGS: Image quality: Excellent. ABDOMEN: Lung bases: Lung bases are clear. Heart size is normal. Partially visualized bilateral breast implants are again noted. Solid organs: Liver is normal in size and enhancement. Gallbladder appears unremarkable. Biliary system is non dilated. Pancreas enhances normally. Spleen is normal in size and enhancement. No adrenal nodules. Kidneys demonstrate normal size and enhancement, without hydronephrosis. Peritoneum and bowel: Scattered colonic diverticulosis without acute inflammatory changes. Minimal circumferential distal colonic bowel wall thickening or inflammatory changes. This is likely related to incomplete distention. Remainder the visualized bowel loops demonstrate normal wall thickness and caliber. No free fluid or air. Nodes and vessels: No retroperitoneal or mesenteric adenopathy by size criteria. Aorta and inferior vena cava are normal in size. Visualized mesenteric vessels appear patent. Mild atherosclerosis at the origin of the celiac trunk. No hemodynamically significant stenosis. Miscellaneous: No ventral hernias. PELVIS: Genitourinary: Bladder wall thickness is normal. Miscellaneous: No inguinal hernias or adenopathy. Bones: No suspicious bony lesions. No acute vertebral body compression fractures. Multilevel spondylitic changes throughout the imaged spine. IMPRESSION: 1. Colonic diverticulosis without acute diverticulitis. 2. Minimal circumferential wall thickening of the descending and sigmoid colon without acute inflammatory changes. Findings are favored to represent incomplete distention versus sequela of reported history of prior ischemic colitis. Consider routine screening colonoscopy if not already accomplished. No significant discrepancy with the warehouse worker 2nd shift radiology preliminary report. Dictated by: Lizandro Salgado M.D. on 03/31/2019 at 7:00 Approved by: Lizandro Salgado M.D. on 03/31/2019 at 7:07
[2019-03-30] MEDS: SODIUM CHLORIDE 0.9% 1,000 ML 1000 ML IV (22:10)
[2019-03-30 22:36] LABS: Add Manual Diff / Slide Review NO; Basophils Absolute Auto 100 /uL (0-100); Basophils Percent Auto 1.2 % (0-2); Eosinophils Absolute Auto 200 /uL (0-450); Hemoglobin 13.2 g/dL (12.0-16.0); Lymphocytes Absolute Auto 2100 /uL (1100-4500); Lymphocytes Percent Auto 27.5 % (25-40); Mean Corpuscular HGB Conc 33.9 % (30-36); Mean Corpuscular Hemoglobin 29.9 PG (26-34); Mean Corpuscular Volume 88.3 fL (80-100); Monocytes Absolute Auto 800 /uL (0-900); Neutrophils Absolute Auto 4400 /uL (1500-7000); Neutrophils Percent Auto 58.3 % (50-75); Platelet Count 279 X10^3/uL (150-400); Red Blood Cell Count 4.42 X10^6/uL (4.0-5.2); Red Cell Distribution Width 13.1 % (11.6-14.8); White Blood Cell Count 7.6 X10^3/uL (4.5-11.0)
[2019-03-30] MEDS: ACETAMINOPHEN 325 MG TABLET 650 MG PO (22:41)
[2019-03-30] MEDS: ONDANSETRON 4 MG/2 ML INJ IV (22:41)
[2019-03-30 22:44] LABS: Lactate (Lactic Acid) 1.3 mmol/L (0.7-2.1)
[2019-03-30 23:03] LABS: Alanine Aminotransferase 17 IU/L (9-52); Albumin 4.1 g/dL (3.5-5.0); Albumin Globulin Ratio 1.3 (1.0-2.8); Alkaline Phosphatase 63 U/L (38-126); Aspartate Aminotransferase 36 IU/L (14-36); Bilirubin Total 0.2 mg/dL (0.2-1.3); Blood Urea Nitrogen 28 mg/dL (7-17); Calcium 9.3 mg/dL (8.4-10.2); Carbon Dioxide 29 mmol/L (22-32); Chloride 104 mmol/L (98-107); Estimated Glomerular Filt Rate > 60.0 mL/min (>60); Globulin 3.1 g/dL (1.7-4.1); Glucose 131 mg/dL (80-110); HEMOLYSIS < 15 (0-50); Lipase 206 U/L (23-300); Potassium 3.5 mmol/L (3.4-5.1); Sodium 140 mmol/L (137-145); Total Protein 7.2 g/dL (6.3-8.2)
[2019-03-30 23:17] LABS: Procalcitonin < 0.05 ng/mL (<0.5)
[2019-03-30 23:34] LABS: RBC Urine None Seen (0-5/HPF)
[2019-03-30 23:50] LABS: Appearance Urine UA CLEAR; Bilirubin Urine UA NEGATIVE (NEGATIVE); Color Urine UA YELLOW; Glucose Urine UA NEGATIVE (Negative); Ketones Urine UA NEGATIVE (NEGATIVE); Leukocyte Esterase Urine UA 1+ (NEGATIVE); Nitrite Urine UA NEGATIVE (Negative); Occult Blood Urine UA TRACE-LYSED (Negative); Protein Urine UA TRACE (Negative); Urobilinogen Urine UA 0.2 E.U./dL (0.2)
[2019-03-30 23:54] LABS: pH Urine UA 5.5 (4.5-8.0)
[2019-03-31] VITALS (11 sets, daily range): BP systolic 105–133; BP diastolic 57–75; PULSE 51–66; RESP 16–18; TEMP 36.2–36.8; O2SAT 94–99; BMI 25.4
[2019-03-31 00:23] LABS: Calcium Oxalate Crystals Urine Moderate; Squamous Epithelial Cell Urine 1-5 /HPF (0-5/HPF); WBC Urine 10-30/HPF (0-5/HPF)
[2019-03-31 00:24] LABS: Bacteria Urine Few (2-10); Culture Indicated Urine Specimen Cultured; Hyaline Casts Urine 0-1/LPF
[2019-03-31] MEDS: metroNIDAZOLE 500 MG/100 ML PIGGYBACK 100 MG IV (01:31)
--- NOTE | 2019-03-31 03:15 | PC.NURSE ---
Admit notes; Admitted to room 227 from ER, diagnosed with Colitis. S&S at home was abdominal pain, diarrhea & nausea. Pt. reported had an appointment on in [place] for her Colitis. But the pain got worst last evening so she went to ER. Medicated with Tylenol in ER. pain then was 10/10. On admit to the floor her pain level is down to 3/10 & reports it's tolerable. No C/O nausea & no diarrhea noted, Bowel tones hypoactive. Up to the BR. voided 200 cc of dark yellow urine. Will cont. POC & monitor.
[2019-03-31] MEDS: CIPROFLOXACIN 400 MG/200 ML PIGGYBACK 200 MG IV (04:13)
[2019-03-31] MEDS: SODIUM CHLORIDE 0.9% FLUSH 10 ML IV ×3 (05:14→20:56)
[2019-03-31 08:36] LABS: Add Manual Diff / Slide Review NO; Basophils Absolute Auto 100 /uL (0-100); Basophils Percent Auto 0.8 % (0-2); Eosinophils Absolute Auto 200 /uL (0-450); Eosinophils Percent Auto 2.9 % (2-4); Hematocrit 36.3 % (36-46); Hemoglobin 12.2 g/dL (12.0-16.0); Lymphocytes Absolute Auto 2000 /uL (1100-4500); Lymphocytes Percent Auto 28.4 % (25-40); Mean Corpuscular HGB Conc 33.6 % (30-36); Mean Corpuscular Hemoglobin 29.8 PG (26-34); Mean Corpuscular Volume 88.9 fL (80-100); Monocytes Absolute Auto 700 /uL (0-900); Monocytes Percent Auto 9.9 % (3-14); Neutrophils Absolute Auto 4100 /uL (1500-7000); Platelet Count 249 X10^3/uL (150-400); Red Blood Cell Count 4.08 X10^6/uL (4.0-5.2); Red Cell Distribution Width 13.5 % (11.6-14.8); White Blood Cell Count 7.1 X10^3/uL (4.5-11.0)
[2019-03-31 08:47] LABS: Alanine Aminotransferase 23 IU/L (9-52); Albumin 3.7 g/dL (3.5-5.0); Albumin Globulin Ratio 1.3 (1.0-2.8); Alkaline Phosphatase 55 U/L (38-126); Aspartate Aminotransferase 27 IU/L (14-36); Bilirubin Total 0.3 mg/dL (0.2-1.3); Blood Urea Nitrogen 19 mg/dL (7-17); Calcium 8.8 mg/dL (8.4-10.2); Carbon Dioxide 28 mmol/L (22-32); Chloride 103 mmol/L (98-107); Estimated Glomerular Filt Rate > 60.0 mL/min (>60); Globulin 2.9 g/dL (1.7-4.1); Glucose 81 mg/dL (80-110); HEMOLYSIS < 15 (0-50); Magnesium 1.8 mg/dL (1.6-2.3); Potassium 3.7 mmol/L (3.4-5.1); Sodium 140 mmol/L (137-145); Total Protein 6.6 g/dL (6.3-8.2)
--- NOTE | 2019-03-31 08:48 | P.HP_ITS ---
History of Present Illness History of Present Illness Date Patient Seen: 03/31/19 Time Patient Seen: 08:28 Chief complaint: STOMACH PAIN Narrative: The patient is a 68-year-old female who presented to the ED on 03/30/2019 with abdominal pain. Pain is localized to bilateral lower quadrants. Discomfort is described as alternating at times in the left lower quadrant and at other times in the right lower quadrant, noted to be of variable intensity, and described as cramping. Abdominal pain does not radiate to the flank, groin or back. 07/25/2030 patient was seen in the ED for similar symptoms as well as symptoms of cystitis. She was diagnosed with acute diverticulitis and UTI and treated empirically with a 10 day course of Cipro Flagyl. She completed the aforementioned medications 2-3 days ago. She felt better, however is concerned for developing acute complications. She has been working closely with her PCP and has a follow-up appointment with a provider in [place] in regard to her GI concerns. Notes associated symptoms of tenesmus wi th concurrent urinary frequency and diarrhea in the past 24-48 hours. She denies fever and chills. Reports unintentional weight loss of 10 lb in the past 3-6 months. She believe she keeps herself well hydrated. If she has taken 1-2 doses of OTC ibuprofen, however denies frequent use. This morning had mucoid stool with potential bloody residue. This was reported by patient's nurse. She has not had significant abdominal pain since arrival to the acute care floor. Reports food consumption to exacerbate abdominal pain. Records available in patient's chart her limited. However patient does have extensive and complicated PMH. Known to have had GERD, Schiatzki ring, Dysphagia, h/o esophageal dilatation, the 2 surgeries for lysis of adhesions (1985 and 2004), prior history of ischemic colitis, and spastic bowel. Also has a history of CVA with tPA and minimal left sided residual deficits. It is not entirely clear if patient had a true CVA without review of records, there is documentation that notes the event to be a complex migraine variant. This is given as reason for patient not taking aspirin BB. Patient herself states she has refused Plavix out of fear of associated side effects. Her last colonoscopy was in 2015 and EGD in 2016. She denies history of autoimmune illness. Family history significant for breast cancer, ovarian cancer and lymphoma in mother and grandmother. Patient follows with a industrial renderer and uses multiple OTC supplements. CT of A/P, 03/30 Diverticulosis without acute diverticulitis. Minimal circumferential distal colonic bowel wall thickening of the descending and sigmoid colon without acute inflammatory changes. Findings are favored to represent incomplete distention versus sequela of reported history of prior ischemic colitis. Consider routine screening colonoscopy, if not already accomplished. Vital signs are stable. Without evidence of tachycardia, tachypnea, or hypotension. Heart rate shows stable current, however drops into the 50s at times. Initial labs revealed absence of leukocytosis, normal lactate and procalcitonin level. In ED, General surgery was consulted and it was communicated that inpatient admission was encouraged in the of recurrent symptoms. Also, patient received a dose of ciprofloxacin and and Flagyl. Patient History Medical History CVA (cerebral vascular accident) (Acute) Dental abscess (Acute) Depression (Acute) Depression as late effect of cerebrovascular accident (CVA) (Acute) HLD (hyperlipidemia) (Acute) Family History Father No problems noted. Mother No problems noted. Social History household members: spouse and family Smoking Status: Former smoker alcohol intake: current Family & Social History Social History: household members spouse,family Prior Living Arrangements House Safety & Behavioral: Feels Safe in Current Yes Environment Been Physically Hurt or No Threatened By a Person Suicidal Ideation Description None Suicide Plan Description No Plan Tobacco & Substance use: Smoking Status Former smoker alcohol intake current alcohol intake frequency 0-2 drinks per day Substance Use Type does not use Meds Home Medications and Allergies Home Medications Medication Instructions Recorded Confirmed Type fluoxetine [Prozac] 10 mg PO DAILY 03/31/19 03/31/19 History pantoprazole 40 mg PO DAILY 03/31/19 03/31/19 History Allergies Allergy/AdvReac Type Severity Reaction Status Date / Time No Known Drug Allergies Allergy Verified 03/30/19 21:53 Review of Systems Review of Systems ROS Unobtainable: All systems reviewed & are unremarkable except as noted in HPI and below Exam Vital Signs (past 8 hours): - 03/31/19 00:53 03/31/19 01:59 03/31/19 02:58 Temperature 97.6 F 97.6 F Pulse Rate 66 65 65 Respiratory Rate 18 16 16 Blood Pressure 111/66 111/66 Blood Pressure [Right Arm] 105/57 L Pulse Oximetry 94 95 95 03/31/19 03:11 03/31/19 07:50 Temperature 97.6 F Pulse Rate 60 Respiratory Rate 16 Blood Pressure 132/73 Blood Pressure [Right Arm] Pulse Oximetry 95 99 Oxygen Delivery Method Room Air Narrative Exam Narrative: Constitutional: NAD Neurologic: AOx3, no focal neurological deficits Head: NC, AT Eyes: PERRL, EOMI, gaze conjugate, sclerae anicteric Ears: external ears normal, no otorrhea Nose: external nose normal, no rhinorrhea or epistaxis Throat: MMM, oropharynx w/o exudate Neck: no masses, lymphadenopathy, or JVD Chest / Respiratory: equal chest rise, unlabored respiratory effort, CTAB Heart / CV: S1S2, murmur present, times ectopic beats Abdomen / GI: round, ND, + BS, no organomegaly, LLQ with deep palpation, pain appears to be tolerable : no suprapubic tenderness, no CVA Peripheral / Vascular: warm to touch, DP and PT pulses palpable, no edema Musc: full ROM of upper and lower extremities, adequate muscle tone and bulk Skin: no ecchymosis or suspicious lesions / ulcers Objective Labs Result Diagrams: 03/31/19 08:24 03/31/19 08:24 Labs: Laboratory Results - last 24 hr 03/30/19 03/30/19 03/30/19 22:15 22:15 22:15 WBC 7.6 RBC 4.42 Hgb 13.2 Hct 39.0 MCV 88.3 MCH 29.9 MCHC 33.9 RDW 13.1 Plt Count 279 Neut % (Auto) 58.3 Lymph % (Auto) 27.5 [place] % (Auto) 10.0 Eos % (Auto) 3.0 Baso % (Auto) 1.2 Neut # (Auto) 4400 Lymph # (Auto) 2100 [place] # (Auto) 800 Eos # (Auto) 200 Baso # (Auto) 100 Sodium 140 Potassium 3.5 Chloride 104 Carbon Dioxide 29 BUN 28 H Creatinine 0.70 Estimated GFR > 60.0 BUN/Creatinine Ratio 40.0 H Glucose 131 H Lactate Calcium 9.3 Total Bilirubin 0.2 AST 36 ALT 17 Alkaline Phosphatase 63 Total Protein 7.2 Albumin 4.1 Globulin 3.1 Albumin/Globulin Ratio 1.3 Lipase 206 Procalcitonin < 0.05 Urine Color Urine Appearance Urine pH Ur Specific [place] Urine Protein Urine Glucose (UA) Urine Ketones Urine Occult Blood Urine Nitrate Urine Bilirubin Urine Urobilinogen Ur Leukocyte Esterase Urine RBC Urine WBC Ur Squamous Epith Cells Calcium Oxalate Crystal Urine Bacteria Hyaline Casts Ur Culture Indicated? 03/30/19 03/30/19 03/31/19 22:15 23:20 08:24 WBC 7.1 RBC 4.08 Hgb 12.2 Hct 36.3 MCV 88.9 MCH 29.8 MCHC 33.6 RDW 13.5 Plt Count 249 Neut % (Auto) 58.0 Lymph % (Auto) 28.4 [place] % (Auto) 9.9 Eos % (Auto) 2.9 Baso % (Auto) 0.8 Neut # (Auto) 4100 Lymph # (Auto) 2000 [place] # (Auto) 700 Eos # (Auto) 200 Baso # (Auto) 100 Sodium Potassium Chloride Carbon Dioxide BUN Creatinine Estimated GFR BUN/Creatinine Ratio Glucose Lactate 1.3 Calcium Total Bilirubin AST ALT Alkaline Phosphatase Total Protein Albumin Globulin Albumin/Globulin Ratio Lipase Procalcitonin Urine Color Yellow Urine Appearance Clear Urine pH 5.5 Ur Specific [place] 1.020 Urine Protein Trace H Urine Glucose (UA) Negative Urine Ketones Negative Urine Occult Blood Trace-lysed Urine Nitrate Negative Urine Bilirubin Negative Urine Urobilinogen 0.2 Ur Leukocyte Esterase 1+ H Urine RBC None seen Urine WBC 10-30/hpf H Ur Squamous Epith Cells 1-5 /hpf Calcium Oxalate Crystal Moderate H Urine Bacteria Few (2-10) H Hyaline Casts 0-1/lpf Ur Culture Indicated? Specimen cultured Assessment & Plan Assessment & Plan narrative: Patient is being admitted for abdominal pain. Abdominal pain, intractable /recurring, present on admission, active - S/S lower quadrant abdominal pain, tenesmus, new suspicion of blood per rectum, diarrhea in the past 24-[address] hours - [address] of A/P (03/30) diverticulosis w/o acute diverticulitis; minimal circumferential distal colonic bowel wall thickening of the descending and sigmoid colon w/o acute inflammatory changes. Findings are favored to represent incomplete distention versus sequela of reported history of prior ischemic colitis. - WBC 7.6, PCT < 0.05, Lactate 1.3. No fever or chills. No symptoms of sepsis. - Keep patient NPO /bowel rest - IVF resuscitation - General surgery consulted / case discussed w/ in ED, Dr. Huizar Appreciate feedback from General surgery. Patient notes that if there is to be a pending intervention, then she wishes to be transferred to the hospital in [place]. Patient has been working closely with her PCP Dr. Desouza in making arrangements to see be seen by a provider in [place] for the aforementioned issue. - Received Cipro and Flagyl in the ED. Patient has completed a 10 day course of Cipro and Flagyl 2-3 days ago. At present time, there does not appear to be an indication for empiric therapy, Cipro Flagyl be discontinued. - Mucous-like with evidence of rectal bleed with a.m. stool, asked nurse to Heme-occult Addendum, 10:21 a.m. Patient complains of abdominal pain. Will give a 1 time dose of fentanyl 25 mcg. Will also add Bentyl 10 mg p.o. q.6 hours as needed. Abnormal urinalysis, subacute, present on admission, active Patient had abnormal UA results on 03/17, with symptoms consistent with UTI. This admission also has trace LE, urine WBC 10-30, urine bacteria few / 2-10, in moderate calcium oxalate crystals In the past week patient completed a 10 day course of ciprofloxacin, she does not endorse recurrent UTIs or known multi-drug resistance. UA on 03/17 potentially contaminated. - ordered repeat clean-catch UA - will hold off on further antimicrobial therapy History of CVA, status post tPA (11/2016), chronic condition, stable Patient is not on aspirin or statin. Notes taking OTC supplements prescribed by her naturopathic physician. - not a clear disclosure of the med list, will need to clarify Quality VTE Deep Vein Thrombosis/Pulmonary Embolism Present on Admission: No
[2019-03-31] MEDS: LACTATED RINGERS 1,000 ML 1000 ML IV (09:03)
--- NOTE | 2019-03-31 09:36 | PC.NURSE ---
Addendum entered by Mariam Neal R.N. 03/31/19 15:11: Family visiting patient, to see patient for discussion involving plan of care. Patient ambulating independently to bathroom. IV started with antibiotics and U/A sent to lab. Patient describes pain as episodic and denies need for ordered narcotic at this time. Would prefer something not as strong will follow up. Patient denies further needs at this time. Original Note: Patient resting in bed. Reported small BM earlier with mucous blood, placed hat in restroom for stool sample. Patient denies pain, SOB, chest pain, and nausea at this time. Bolus of LR ordered and hung. Patient is amicable, communicative and denies further needs at this time.
[2019-03-31 11:17] LABS: Bacteria Urine None Seen; WBC Urine None Seen (0-5/HPF)
--- NOTE | 2019-03-31 11:18 | CM.DANOTE ---
Patient is a 68 year old female who was admitted on 03/31/19 for Stomach Pain. Pt has [facility] and [facility] for insurance and her PCP is Dr. Avelino Desouza. EMR was reviewed. Per MD, pt to have a Surgeon Consult to determine if surgery is needed at this time. Pt was recently in the hospital for diverticulitis. SW met bedside with pt and spouse and explained role and updated white board and pt confirms that they live at home in [place] and they are both very active at baseline. Pt does not use equipment to ambulate and drives herself and denies any hx of HH or SNF. Pt states that they recently moved permanently up to their house in [place] and are in the process of selling their house in [place]. They have local son and grandkids. Pt and spouse deny having completed DPOA pwk but state that they plan on completing health care directive as well as POA pwk in the near future. Pt and spouse understand that there is a chance that if she needs surgery then may need an ostomy for a while and would be open to HH RN at d/c. Plan: SW to follow closely for Surgical Consult towards identifying d/c planning needs. KOLBY De Jesus Discharge Planning/Care Management CM Discharge Assessment Start: 03/31/19 11:17 Freq: Status: Active Protocol: Document 03/31/19 11:17 BF (Rec: 03/31/19 11:18 BF [id number]) Discharge Planning Assessment Assigned Supervisor [employer] ESEQUIEL Clark DPOA/Assigned Designee Name none Advance Directives? No Advance Directives on File No History Provided By Patient,Significant Other, Medical Record Has Patient been admitted in last 30 No days? Prior Living Arrangements House Household Members spouse,family Type of transporation used prior to Drives own vehicle admit Comment Very independent at baseline Independent with ADL's Yes Is patient alert and oriented? Yes Caregiver for Another No: but local young grandkids Patient/Family Preference Home with Home Health Comment Pending possible surg and d/c needs Barriers to Discharge No Discharge Plan Home Transportation Arrangement Family to provide transport. Additional Comment Following for possible surg and possible need for colostomy Whiteboard Updated in Patient Room with Yes name and ext. # of Supervisor [employer] Review Status In Process Please Provide Date Initial DC 03/31/19 Assessment Was Performed Next Review Type Continued Stay Review
[2019-03-31 11:35] LABS: Appearance Urine UA CLEAR; Bilirubin Urine UA NEGATIVE (NEGATIVE); Glucose Urine UA NEGATIVE (Negative); Ketones Urine UA NEGATIVE (NEGATIVE); Leukocyte Esterase Urine UA NEGATIVE (NEGATIVE); Nitrite Urine UA NEGATIVE (Negative); Occult Blood Urine UA 2+ (Negative); Protein Urine UA NEGATIVE (Negative); Specific Gravity Urine UA <=1.005 (1.000-1.035); Urobilinogen Urine UA 0.2 E.U./dL (0.2)
[2019-03-31 11:53] LABS: Color Urine UA Clear; pH Urine UA 6.5 (4.5-8.0)
[2019-03-31 12:04] LABS: RBC Urine 0-1/HPF (0-5/HPF)
--- NOTE | 2019-03-31 12:05 | P.CONS_ITS ---
History of Present Illness Consult details Date Patient Seen: 03/31/19 Time Patient Seen: 12:05 Chief complaint: STOMACH PAIN Reason for consult: Abdominal pain rectal bleeding Narrative: 68-year-old white female patient who has had a CVA several years ago now markedly recovered also has a history of ischemic colitis about 2 years ago. She was told that after having a colonoscopy to evaluate abdominal pain and some rectal bleeding. She has had ongoing intermittent abdominal pain for some months and now over the past 2 weeks this is been on a regular basis. She had a CT scan in this emergency room about 10 days ago and was felt to have possible diverticulitis was treated with p.o. Cipro at home. She actually improved greatly. Yesterday however abdominal pain recurred. This was rather severe and she came back to the emergency department and has had another CT scan. This scan is read as consistent with possibly ischemic colitis. I have actually reviewed the scan myself and there is some thickening of the descending colon and sigmoid colon with diverticulosis noted in the sigmoid colon. There is no abscess or free air or free fluid. Patient has normal white count normal lactic acid hemoglobin 12-,2. This morning she has had minimal abdominal pain but she has had 2 or 3 episodes of some rectal bleeding. No nausea or vomiting. [facility] Medical History CVA (cerebral vascular accident) (Acute) Dental abscess (Acute) Depression (Acute) Depression as late effect of cerebrovascular accident (CVA) (Acute) HLD (hyperlipidemia) (Acute) Family History Father No problems noted. Mother No problems noted. Social History household members: spouse and family Smoking Status: Former smoker alcohol intake: current Family History Father No problems noted. Mother No problems noted. Social History household members: spouse and family Smoking Status: Former smoker alcohol intake: current Meds Home Medications and Allergies Home Medications Medication Instructions Recorded Confirmed Type fluoxetine [Prozac] 10 mg PO DAILY 03/31/19 03/31/19 History pantoprazole 40 mg PO DAILY 03/31/19 03/31/19 History Allergies Allergy/AdvReac Type Severity Reaction Status Date / Time No Known Drug Allergies Allergy Verified 03/30/19 21:53 Review of Systems Review of Systems ROS Unobtainable: All systems reviewed & are unremarkable except as noted in HPI and below Exam Vital Signs (past 8 hours): - 03/31/19 07:50 Temperature 97.6 F Pulse Rate 60 Respiratory Rate 16 Blood Pressure 132/73 Pulse Oximetry 99 Oxygen Delivery Method Room Air Narrative Exam Narrative: Patient is afebrile resting comfortably in bed and holding her grandchildren smiling and laughing. She has minimal abdominal pain if any. Abdominal exam shows minimal distention. No upper abdominal tenderness. She is really tender only in the left lower quadrant. No signs of peritonitis. No masses are palpated. Objective Labs Result Diagrams: 03/31/19 08:24 03/31/19 08:24 Labs: Laboratory Results - last 24 hr 03/30/19 03/30/19 03/30/19 22:15 22:15 22:15 WBC 7.6 RBC 4.42 Hgb 13.2 Hct 39.0 MCV 88.3 MCH 29.9 MCHC 33.9 RDW 13.1 Plt Count 279 Neut % (Auto) 58.3 Lymph % (Auto) 27.5 [place] % (Auto) 10.0 Eos % (Auto) 3.0 Baso % (Auto) 1.2 Neut # (Auto) 4400 Lymph # (Auto) 2100 [place] # (Auto) 800 Eos # (Auto) 200 Baso # (Auto) 100 Sodium 140 Potassium 3.5 Chloride 104 Carbon Dioxide 29 BUN 28 H Creatinine 0.70 Estimated GFR > 60.0 BUN/Creatinine Ratio 40.0 H Glucose 131 H Lactate Calcium 9.3 Magnesium Total Bilirubin 0.2 AST 36 ALT 17 Alkaline Phosphatase 63 Total Protein 7.2 Albumin 4.1 Globulin 3.1 Albumin/Globulin Ratio 1.3 Lipase 206 Procalcitonin < 0.05 Urine Color Urine Appearance Urine pH Ur Specific [place] Urine Protein Urine Glucose (UA) Urine Ketones Urine Occult Blood Urine Nitrate Urine Bilirubin Urine Urobilinogen Ur Leukocyte Esterase Urine RBC Urine WBC Ur Squamous Epith Cells Calcium Oxalate Crystal Urine Bacteria Hyaline Casts Ur Culture Indicated? 03/30/19 03/30/19 03/31/19 22:15 23:20 08:24 WBC 7.1 RBC 4.08 Hgb 12.2 Hct 36.3 MCV 88.9 MCH 29.8 MCHC 33.6 RDW 13.5 Plt Count 249 Neut % (Auto) 58.0 Lymph % (Auto) 28.4 [place] % (Auto) 9.9 Eos % (Auto) 2.9 Baso % (Auto) 0.8 Neut # (Auto) 4100 Lymph # (Auto) 2000 [place] # (Auto) 700 Eos # (Auto) 200 Baso # (Auto) 100 Sodium Potassium Chloride Carbon Dioxide BUN Creatinine Estimated GFR BUN/Creatinine Ratio Glucose Lactate 1.3 Calcium Magnesium Total Bilirubin AST ALT Alkaline Phosphatase Total Protein Albumin Globulin Albumin/Globulin Ratio Lipase Procalcitonin Urine Color Yellow Urine Appearance Clear Urine pH 5.5 Ur Specific [place] 1.020 Urine Protein Trace H Urine Glucose (UA) Negative Urine Ketones Negative Urine Occult Blood Trace-lysed Urine Nitrate Negative Urine Bilirubin Negative Urine Urobilinogen 0.2 Ur Leukocyte Esterase 1+ H Urine RBC None seen Urine WBC 10-30/hpf H Ur Squamous Epith Cells 1-5 /hpf Calcium Oxalate Crystal Moderate H Urine Bacteria Few (2-10) H Hyaline Casts 0-1/lpf Ur Culture Indicated? Specimen cultured 03/31/19 03/31/19 03/31/19 08:24 08:24 10:33 WBC RBC Hgb Hct MCV MCH MCHC RDW Plt Count Neut % (Auto) Lymph % (Auto) [place] % (Auto) Eos % (Auto) Baso % (Auto) Neut # (Auto) Lymph # (Auto) [place] # (Auto) Eos # (Auto) Baso # (Auto) Sodium 140 Potassium 3.7 Chloride 103 Carbon Dioxide 28 BUN 19 H Creatinine 0.50 L Estimated GFR > 60.0 BUN/Creatinine Ratio 38.0 H Glucose 81 Lactate Calcium 8.8 Magnesium 1.8 Total Bilirubin 0.3 AST 27 ALT 23 Alkaline Phosphatase 55 Total Protein 6.6 Albumin 3.7 Globulin 2.9 Albumin/Globulin Ratio 1.3 Lipase Procalcitonin Urine Color Clear Urine Appearance Clear Urine pH 6.5 Ur Specific [place] <=1.005 Urine Protein Negative Urine Glucose (UA) Negative Urine Ketones Negative Urine Occult Blood 2+ H Urine Nitrate Negative Urine Bilirubin Negative Urine Urobilinogen 0.2 Ur Leukocyte Esterase Negative Urine RBC 0-1/hpf Urine WBC None seen D Ur Squamous Epith Cells Calcium Oxalate Crystal Urine Bacteria None seen Hyaline Casts Ur Culture Indicated? Culture not indicate Assessment & Plan Assessment & Plan narrative: Patient with a history of a stroke who was told 2 years ago that she had ischemic colitis. She is not on any anticoagulant therapy. She has had a persistent illness involving abdominal pain for some months now. She is experiencing some mild rectal bleeding. I have personally reviewed her CT scan from last night. This shows wide patency of the origin of the celiac axis SMA and LINSEY. The left colon is thickened as is the sigmoid. The obvious question is what kind of colitis the patient is experiencing. My plan is IV fluid therapy today with antibiotic therapy as well. Will repeat her hemoglobin. If she is stable enough for a bowel prep tomorrow we will institute a prep and plan on a colonoscopy the following day. At the moment she is resting comfortably and is very stable.
[2019-03-31] MEDS: PIPERACILLIN-TAZO 3.375 GM/50 ML FROZ.PIGGY IV ×3 (12:59→23:50)
[2019-03-31] MEDS: DEXTROSE 5%-0.45NS W/KCL 20MEQ 1,000 ML 84 MEQ IV (12:59)
[2019-03-31] MEDS: DICYCLOMINE 10 MG CAPSULE PO ×2 (18:02→23:52)
[2019-04-01] VITALS (10 sets, daily range): BP systolic 119–152; BP diastolic 64–77; PULSE 50–59; RESP 16–18; TEMP 36.1–36.8; O2SAT 94–99
[2019-04-01] MEDS: DEXTROSE 5%-0.45NS W/KCL 20MEQ 1,000 ML 84 MEQ IV ×2 (04:49→16:43)
[2019-04-01] MEDS: DICYCLOMINE 10 MG CAPSULE PO ×2 (06:02→12:10)
[2019-04-01] MEDS: PIPERACILLIN-TAZO 3.375 GM/50 ML FROZ.PIGGY IV ×3 (06:02→18:26)
[2019-04-01 08:39] LABS: Add Manual Diff / Slide Review NO; Basophils Absolute Auto 0 /uL (0-100); Basophils Percent Auto 0.8 % (0-2); Eosinophils Absolute Auto 200 /uL (0-450); Eosinophils Percent Auto 4.3 % (2-4); Hematocrit 38.7 % (36-46); Lymphocytes Absolute Auto 1500 /uL (1100-4500); Lymphocytes Percent Auto 27.2 % (25-40); Mean Corpuscular HGB Conc 33.5 % (30-36); Mean Corpuscular Hemoglobin 29.9 PG (26-34); Mean Corpuscular Volume 89.1 fL (80-100); Monocytes Absolute Auto 500 /uL (0-900); Monocytes Percent Auto 8.2 % (3-14); Neutrophils Absolute Auto 3400 /uL (1500-7000); Neutrophils Percent Auto 59.5 % (50-75); Platelet Count 257 X10^3/uL (150-400); Red Blood Cell Count 4.34 X10^6/uL (4.0-5.2); Red Cell Distribution Width 13.3 % (11.6-14.8); White Blood Cell Count 5.7 X10^3/uL (4.5-11.0)
--- NOTE | 2019-04-01 09:42 | P.PN_ITS ---
Subjective Subjective Date Patient Seen: 04/01/19 Time Patient Seen: 09:42 Interval history: Patient is admitted with unspecified colitis possibly ischemic today she has no abdominal pain and has minimal tenderness she has no nausea or vomiting she has not had any bloody stools or any stools at all. Yesterday she did have several bloody stools. Her hemoglobin is stable at 13 white count normal Exam Vital Signs (past 8 hours): - 04/01/19 04:00 04/01/19 04:45 Temperature 98.0 F Pulse Rate 50 L Respiratory Rate 16 Blood Pressure 146/70 H Pulse Oximetry 98 98 Oxygen Delivery Method Room Air Oxygen Flow Rate 0 Narrative Exam Narrative: Patient is alert and oriented with no abdominal pain She has minimal left lower quadrant tenderness. Objective Labs Result Diagrams: 04/01/19 08:30 03/31/19 08:24 Labs: Laboratory Results - last 24 hr 03/31/19 04/01/19 10:33 08:30 WBC 5.7 RBC 4.34 Hgb 13.0 Hct 38.7 MCV 89.1 MCH 29.9 MCHC 33.5 RDW 13.3 Plt Count 257 Neut % (Auto) 59.5 Lymph % (Auto) 27.2 [place] % (Auto) 8.2 Eos % (Auto) 4.3 H Baso % (Auto) 0.8 Neut # (Auto) 3400 Lymph # (Auto) 1500 [place] # (Auto) 500 Eos # (Auto) 200 Baso # (Auto) 0 Urine Color Clear Urine Appearance Clear Urine pH 6.5 Ur Specific [place] <=1.005 Urine Protein Negative Urine Glucose (UA) Negative Urine Ketones Negative Urine Occult Blood 2+ H Urine Nitrate Negative Urine Bilirubin Negative Urine Urobilinogen 0.2 Ur Leukocyte Esterase Negative Urine RBC 0-1/hpf Urine WBC None seen D Urine Bacteria None seen Ur Culture Indicated? Culture not indicate Assessment & Plan Assessment & Plan narrative: Patient has nonspecific colitis possibly ischemic. I have looked at her CT from yesterday and it appears to me that her mesenteric arteries including celiac SMA and LINSEY are all widely patent at the origin. Patient has minimal abdominal symptoms today. She has no bleeding. I have ordered a prep for colonoscopy to be done tomorrow. She did have a colonoscopy 2 years ago and was told she had ischemic colitis. Patient understands and agrees to the plan. Quality VTE Deep Vein Thrombosis/Pulmonary Embolism Present on Admission: No
--- NOTE | 2019-04-01 11:23 | PC.NURSE ---
Patient currently resting in bed with at bedside. Alert and oriented x 4, on board with todays plan to begin bowel prep. Denies having stooled yet today, denies SOB, denies abdominal sharp shooting pains but does report tenderness. Denies any chest pain or further needs at this time.
[2019-04-01] MEDS: BISACODYL 5 MG TABLET PO (12:11)
--- NOTE | 2019-04-01 13:30 | P.PN_ITS ---
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 The patient is resting in bed comfortably. She reports she feels significantly improved since yesterday in regard to her abdominal pain which is relieved with Bentyl. She continues to have mild discomfort diffusely in abdomen but when severe localized to left side. She has had a longstanding history of IBS. She also has a family history of ulcerative colitis in both her father and brother. She reports that her abdominal pain has been present for several months and progressively worsening. She has no other complaints and denies headache, shortness of breath, chest pain, abdominal pain, nausea, vomiting, fever, chills, dysuria, or constipation. She continues to have loose stool but no longer having hematochezia. She is voiding and eliminating without difficulty. She is up ambulating without assistance. Exam Vital Signs (past 8 hours): - 04/01/19 08:00 Temperature 97.0 F L Pulse Rate 59 L Respiratory Rate 16 Blood Pressure 130/77 Pulse Oximetry 97 Oxygen Delivery Method Room Air Oxygen Flow Rate 0 Narrative Exam Narrative: General: Older female sitting in bed and in acute distress, well-developed, well-nourished, appropriately interactive HEENT: Normocephalic, atraumatic. External ears without defect. Pupils equal, round, and reactive to light . Anicteric sclerae, moist conjunctivae, and no lid lag. Oropharynx free of erythema and cobble stoning with moist mucosa. Neck: Supple with full range of motion. No jugular venous distension. No bruits. No lymphadenopathy or thyromegaly. Cardiovascular: Regular rate and rhythm without murmurs, rubs, or gallops appreciated Pulmonary: Clear to auscultation bilaterally without crackles, wheezes, or rhonchi. Normal respiratory effort with no use of accessory muscles. Abdomen: Soft, bowel sounds present, mild tenderness to palpation in left quadrants, nondistended. No hepatosplenomegaly or masses appreciated. Extremities: No clubbing, cyanosis, or edema. Skin: Normal temperature, turgor, and texture; no rash, ulcers, or subcutaneous nodules appreciated. Neurological: Cranial nerves grossly intact. Very subtle expressive aphasia that is chronic from previous CVA. Psychiatric: Mildly anxious and appears dressed mood and normal affect. Alert and oriented to person, place, and time. 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 1. Acute left-sided colitis, present on admission. Active. -Patient presented with lower quadrant abdominal pain, tenesmus, new suspicion of blood per rectum, diarrhea in the past 24-48 hours. Patient with history of ischemic colitis 2 years ago. -Differential diagnosis includes: Recurrent ischemic colitis versus IBD (i.e. Ulcerative colitis as patient has family history of both brother and father with UC). -CT abdomen and pelvis demonstrated diverticulosis without acute diverticu litis; minimal circumferential distal colonic bowel wall thickening of the descending and sigmoid colon without acute inflammatory changes. Findings are favored to represent incomplete distention versus sequela of reported history of prior ischemic colitis. -Initial WBC 7.6, PCT < 0.05, Lactate 1.3. ESR normal at 18. No fever or chills. No symptoms of sepsis. -GI stool PCR negative. -Continue clear liquid diet and initiate bowel preparation this afternoon for colonoscopy tomorrow. -Continue maintenance IV fluids with D5 0.45% normal saline and 20 mEq KCL at 50 mL/hr. -General surgery consulted, Dr. Huizar, and we appreciate his time and care of the patient. -Received Cipro 500 mg IV x1 and Flagyl 500 mg IV x1 in the ED. Patient has also recently completed a 10 day course of Cipro and Flagyl 2-3 days ago. General surgery ordered and will continue Zosyn 3.375 g every 6 hours. 2. Acute on chronic abnormal urinalysis, present on admission. Inactive. -Patient had abnormal UA results on 03/17, with symptoms consistent with UTI and completed a 10 day course of ciprofloxacin. No history of recurrent UTIs or known multi-drug resistance. -Patient with symptoms and repeat urinalysis appeared grossly infected but grew 3+ Gram-positive colony types and considered contaminant. -Continue antibiotics as above. -Patient's symptoms may possibly be due to interstitial cystitis versus some other etiology. 3. History of CVA status post tPA (11/2016) with residual subtle expressive aph adolfo, chronic, present on admission. Stable. -Patient is not on aspirin or statin. Patient reports not on statin therapy due to significant myalgias. Notes taking OTC supplements prescribed by her naturopathic physician. -Risk stratified with fasting lipid panel which demonstrated poor control: Total cholesterol 216, triglycerides 131, LDL 149, HDL 41 and Hemoglobin A1c which was normal at 5.4% -recommended Plavix in the future and consideration of trial of low-dose and low side effect profile statin such as rosuvastatin at 2.5 mg daily or every other day. 4. Depression, chronic, present on admission. Stable. -Continue fluoxetine 10 mg daily Disposition: Patient likely to discharge in several days once colonoscopy performed and more clear what type of colitis patient has. Quality VTE Deep Vein Thrombosis/Pulmonary Embolism Present on Admission: No
[2019-04-01 13:45] LABS: Alanine Aminotransferase 19 IU/L (9-52); Albumin Globulin Ratio 1.3 (1.0-2.8); Alkaline Phosphatase 42 U/L (38-126); Aspartate Aminotransferase 41 IU/L (14-36); BUN Creatinine Ratio 14.3 (6-22); Bilirubin Total 0.7 mg/dL (0.2-1.3); Blood Urea Nitrogen 10 mg/dL (7-17); Calcium 9.2 mg/dL (8.4-10.2); Carbon Dioxide 32 mmol/L (22-32); Chloride 100 mmol/L (98-107); Cholesterol 216 mg/dL (140-199); Estimated Glomerular Filt Rate > 60.0 mL/min (>60); Globulin 3.1 g/dL (1.7-4.1); Glucose 99 mg/dL (80-110); HDL Cholesterol 41 mg/dL (40-60); HEMOLYSIS 15 (0-50); LDL Cholesterol Calculated 149 mg/dL (<100); Magnesium 1.8 mg/dL (1.6-2.3); Sodium 140 mmol/L (137-145); Total Protein 7.1 g/dL (6.3-8.2); Triglycerides 131 mg/dL (35-150)
[2019-04-01 13:48] LABS: Hemoglobin A1C% w Est Avg Glu 5.4 % (4.0-6.0)
[2019-04-01] MEDS: PEG3350/SOD SULF,BICARB,CL/KCL 4,000 ML SOLUTION 4000 ML PO (14:45)
[2019-04-01 20:25] LABS: Campylobacter Not Detected (Not Detect); Clostridium difficile toxin AB Not Detected (Not Detect); Enteroaggregative E.coli Not Detected (Not Detect); Enteropathogenic E.coli Not Detected (Not Detect); Enterotoxigenic E.coli It/st Not Detected (Not Detect); Plesiomonsa shigelloides Not Detected (Not Detect); Salmonella Not Detected (Not Detect); Shiga-like toxin-prod E.coli Not Detected (Not Detect); Vibrio Not Detected (Not Detect); Vibrio cholerae Not Detected (Not Detect); Yersinia enterocolitica Not Detected (Not Detect)
[2019-04-01 20:26] LABS: Adenovirus F 40/41 Not Detected (Not Detect); Astrovirus Not Detected (Not Detect); Cryptosporidium Not Detected (Not Detect); Cyclospora cayetanensis Not Detected (Not Detect); Entamoeba histolytica Not Detected (Not Detect); Giardia lamblia Not Detected (Not Detect); Norovirus GI/GII Not Detected (Not Detect); Rotavirus A Not Detected (Not Detect); Shigella/Enteroinvasive E.coli Not Detected (Not Detect)
[2019-04-02] VITALS (14 sets, daily range): BP systolic 109–157; BP diastolic 64–78; PULSE 50–61; RESP 12–20; TEMP 36.1–36.8; O2SAT 92–99
--- NOTE | 2019-04-02 | PATH_ITS ---
[facility] Accession Number: [id number] . 01 Material submitted: . PART A: ileum - TERMINAL ILEUM BIOPSY PART B: sigmoid colon - DISTAL SIGMOID INFLAMMATION BIOPSY . 01 Clinical history: . STOMACH PAIN . 02 Diagnosis: A. Terminal Ileum, Biopsy: Small bowel mucosa with no diagnostic abnormality. Negative for active inflammation, dysplasia and malignancy. . B. Distal Sigmoid Colon, Biopsy: Mildly active colitis with ischemia-type changes, please see comment. Negative for granulomas, dysplasia and malignancy. [facility] 04/04/2019 1337 Local . 02 Comment: B. The differential diagnosis includes ischemia due to trauma/prolapse, true vascular ischemia, and ischemia due to infection (i.e., enterohemorrhagic E. Coli, C. difficile, etc.). . 02 Electronically signed: . Patricia Mitchell MD, Pathologist NPI- [id number] . 01 Gross description: . Part A: TERMINAL ILEUM BIOPSY: Received in formalin are 3 fragment(s) of andersen, soft tissue measuring 0.1 x 0.1 x 0.1 cm to 0.2 x 0.2 x 0.2 cm which is entirely submitted and submitted entirely in 1 cassette(s) Part B: DISTAL SIGMOID INFLAMMATION BIOPSY: Received in formalin are 3 fragment(s) of andersen, soft tissue measuring 0.1 x 0.1 x 0.1 cm to 0.3 x 0.2 x 0.2 cm which is entirely submitted and submitted entirely in 1 cassette(s) /[facility] 04/03/20198 Local . 02 Pathologist provided ICD-10: K55.9 . 02 CPT . 289599, [id number] Performed at: [address] [address], [place], [place] [id number] MD Kayode Smalls MD Phone: [phone] Performed at: 02 [facility] [address] [place] [id number] MD Patricia Mitchell MD Phone: [phone]
[2019-04-02] MEDS: PIPERACILLIN-TAZO 3.375 GM/50 ML FROZ.PIGGY IV ×2 (00:35→06:25)
--- NOTE | 2019-04-02 00:58 | PC.NURSE ---
[employer] Note: 0015: Awake, up to bathroom independently. Pt states she is not passing any more stool, just clear fluid. Pt is finished with [place]. IV in place in rt forearm with D5 1/2NS/kcl at 84cc/hr. Vital signs stable.
[2019-04-02] MEDS: DEXTROSE 5%-0.45NS W/KCL 20MEQ 1,000 ML 84 MEQ IV (06:41)
[2019-04-02 09:39] LABS: BUN Creatinine Ratio 8.6 (6-22); Blood Urea Nitrogen 6 mg/dL (7-17); Calcium 8.9 mg/dL (8.4-10.2); Carbon Dioxide 30 mmol/L (22-32); Chloride 101 mmol/L (98-107); Estimated Glomerular Filt Rate > 60.0 mL/min (>60); Glucose 105 mg/dL (80-110); HEMOLYSIS < 15 (0-50); Magnesium 1.9 mg/dL (1.6-2.3); Potassium 3.9 mmol/L (3.4-5.1); Sodium 140 mmol/L (137-145)
--- NOTE | 2019-04-02 13:01 | CM.DPC ---
DCP: continued: case received and discussed in Team Rounds this morning. Dr. Meyer said she was putting in a d/c order for the home setting but that was taking pt for a colonoscopy today. This is an add on..is scheduled for later this afternoon. Pt is functionally independent at baseline and has spouse support. Plan remains home when stable for same. Will not know until after the surgical procedure.
--- NOTE | 2019-04-02 15:05 | PM.PN.1 ---
Subjective Subjective Date Patient Seen: 04/02/19 Time Patient Seen: 15:05 Interval history: Abdominal pain improved. No longer having bloodly stools. Tolerated colonoscopsy prep today Exam Vital Signs (past 8 hours): - 04/02/19 08:00 Temperature 97.8 F Pulse Rate 54 L Respiratory Rate 16 Blood Pressure 128/70 Pulse Oximetry 99 Oxygen Delivery Method Room Air Oxygen Flow Rate 0 Narrative Exam Narrative: Mild bilteral tenderness in lower quad as well as some mid abdominal tenderness Objective Labs Result Diagrams: 04/01/19 08:30 04/02/19 09:17 Labs: Laboratory Results - last 24 hr 04/01/19 04/02/19 19:00 09:17 Sodium 140 Potassium 3.9 Chloride 101 Carbon Dioxide 30 BUN 6 L Creatinine 0.70 Estimated GFR > 60.0 BUN/Creatinine Ratio 8.6 Glucose 105 Calcium 8.9 Magnesium 1.9 Stl C. cayetanensis PCR Not detected Stool Rotavirus (PCR) Not detected Stool Adenovirus (PCR) Not detected Stool Astrovirus (PCR) Not detected Stool Cryptosporidium PCR Not detected Stl E.coli Shiga Tox PCR Not detected St Sh/Enteroin Ecoli PCR Not detected Stool E coli O157 PCR Not detected Stl Enterotoxigenic E PCR Not detected Stool EPEC (PCR) Not detected Stl E. histolytica PCR Not detected Stool Giardia Lamblia PCR Not detected Stl P. shigelloides PCR Not detected St Y.enterocolitica PCR Not detected Stool Vibrio (PCR) Not detected Stl Vibrio cholerae PCR Not detected Stl Enteroaggr Ecoli PCR Not detected Stl Norovirus GI/GII PCR Not detected Campylobacter (PCR) Not detected C. difficile Tox (PCR) Not detected Salmonella (PCR) Not detected Assessment & Plan Assessment & Plan narrative: 68 yo woman with GIB - as well as spasmotic abdominal pain in paroxisms Plan [facility] and [place] today Booked - late in day NPO Quality VTE Deep Vein Thrombosis/Pulmonary Embolism Present on Admission: No
--- NOTE | 2019-04-02 19:27 | PM.DS.1 ---
History of Present Illness History of Present Illness Date Patient Seen: 03/31/19 Chief complaint: STOMACH PAIN Narrative: Written by Zac KIRBY: The patient is a 68-year-old female who presented to the ED on 03/30/2019 with abdominal pain. Pain is localized to bilateral lower quadrants. Discomfort is described as alternating at times in the left lower quadrant and at other times in the right lower quadrant, noted to be of variable intensity, and described as cramping. Abdominal pain does not radiate to the flank, groin or back. 07/25/2030 patient was seen in the ED for similar symptoms as well as symptoms of cystitis. She was diagnosed with acute diverticulitis and UTI and treated empirically with a 10 day course of Cipro Flagyl. She completed the aforementioned medications 2-3 days ago. She felt better, however is concerned for developing acute complications. She has been working closely with her PCP and has a follow-up appointment with a provider in [place] in regard to her GI concerns. Notes associated symptoms of tenesmus with concurrent urinary frequency and diarrhea in the past 24-48 hours. She denies fever and chills. Reports unintentional weight loss of 10 lb in the past 3-6 months. She believe she keeps herself well hydrated. If she has taken 1-2 doses of OTC ibuprofen, however denies frequent use. This morning had mucoid stool with potential bloody residue. This was reported by patient's nurse. She has not had significant abdominal pain since arrival to the acute care floor. Reports food consumption to exacerbate abdominal pain. Records available in patient's chart her limited. However patient does have extensive and complicated PMH. Known to have had GERD, Schiatzki ring, Dysphagia, h/o esophageal dilatation, the 2 surgeries for lysis of adhesions (1985 and 2004), prior history of ischemic colitis, and spastic bowel. Also has a history of CVA with tPA and minimal left sided residual deficits. It is not entirely clear if patient had a true CVA without review of records, there is documentation that notes the event to be a complex migraine variant. This is given as reason for patient not taking aspirin BB. Patient herself states she has refused Plavix out of fear of associated side effects. Her last colonoscopy was in 2015 and EGD in 2017. She denies history of autoimmune illness. Family history significant for breast cancer, ovarian cancer and lymphoma in mother and grandmother. Patient follows with a manager resort and uses multiple OTC supplements. CT of A/P, 03/30 Diverticulosis without acute diverticulitis. Minimal circumferential distal colonic bowel wall thickening of the descending and sigmoid colon without acute inflammatory changes. Findings are favored to represent incomplete distention versus sequela of reported history of prior ischemic colitis. Consider routine screening colonoscopy, if not already accomplished. Vital signs are stable. Without evidence of tachycardia, tachypnea, or hypotension. Heart rate shows stable current, however drops into the 50s at times. Initial labs revealed absence of leukocytosis, normal lactate and procalcitonin level. In ED, General surgery was consulted and it was communicated that inpatient admission was encouraged in the of recurrent symptoms. Also, patient received a dose of ciprofloxacin and and Flagyl. Discharge Providers Provider Date of admission: 03/31/19 01:23 Discharge Date: 04/02/19 Primary care physician: Avelino Desouza MD Consults: 03/31/19 09:19 Consult to General Surgery Routine Comment: provider was notified in ED Consulting Provider: Fabricio Dumont Reason for consultation: recurrent abodminal pain, concern for ischemic colitis Has provider been notified: Yes Discharge provider: Jerrica Meyer DO Summary Hospital Course Discharge Diagnosis: 1. Acute left-sided colitis, present on admission. Resolving. 2. Acute on chronic abnormal urinalysis, present on admission. Inactive. 3. History of CVA status post tPA (11/2016) with residual subtle expressive aphasia, chronic, present on admission. Stable. 4. Depression, chronic, present on admission. Stable. 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 1. Acute left-sided colitis, present on admission. Resolving. -Patient presented with lower quadrant abdominal pain, tenesmus, new suspicion of blood per rectum, diarrhea in the past 24-48 hours. Patient with history of ischemic colitis 2 years ago. -Differential diagnosis includes: Recurrent ischemic colitis versus IBD (i.e. Ulcerative colitis as patient has family history of both brother and father with UC) versus non-specific colitis. -CT abdomen and pelvis demonstrated diverticulosis without acute diverticulitis; minimal circumferential distal colonic bowel wall thickening of the descending and sigmoid colon without acute inflammatory changes. Findings are favored to represent incomplete distention versus sequela of reported history of prior ischemic colitis. -Initial WBC 7.6, PCT < 0.05, Lactate 1.3. ESR normal at 18. No fever or chills. No symptoms of sepsis. -GI stool PCR negative. -Continued clear liquid diet and initiate bowel preparation this afternoon for colonoscopy tomorrow. -Continued maintenance IV fluids with D5 0.45% normal saline and 20 mEq KCL at 50 mL/hr until adequately hydrated. -General surgery consulted, Dr. Huizar in ED. Discharge pending EGD and colonscopy performed by Dr. Day this afternoon. -Received Cipro 500 mg IV x1 and Flagyl 500 mg IV x1 in the ED. Patient has also recently completed a 10 day course of Cipro and Flagyl 2-3 days ago. General surgery initially gave Zosyn 3.375 g every 6 hours and have discontinued as no felt to be infectious. -Patient has scheduled GI evaluation on 04/05 with GI at [facility]. 2. Acute on chronic abnormal urinalysis, present on admission. Inactive. -Patient had abnormal UA results on 03/17, with symptoms consistent with UTI and completed a 10 day course of ciprofloxacin. No history of recurrent UTIs or known multi-drug resistance. -Patient with symptoms and repeat urinalysis appeared grossly infected but grew 3+ Gram-positive colony types and considered contaminant. -Continued antibiotics as above. -Patient's symptoms may possibly be due to interstitial cystitis versus some other etiology. 3. History of CVA status post tPA (11/2016) with residual subtle expressive aphasia, chronic, present on admission. Stable. -Patient is not on aspirin or statin. Patient reports not on statin therapy due to statin intolerance with significant myalgias. Notes taking OTC supplements prescribed by her naturopathic physician. -Risk stratified with fasting lipid panel which demonstrated poor control: Total cholesterol 216, triglycerides 131, LDL 149, HDL 41 and Hemoglobin A1c which was normal at 5.4% -Recommended Plavix in the future and consideration of trial of low-dose and low side effect profile statin such as rosuvastatin at 2.5 mg daily or every other day. 4. Depression, chronic, present on admission. Stable. -Continued fluoxetine 10 mg daily. Exam Vital Signs (past 8 hours): - 04/02/19 12:00 04/02/19 15:47 Temperature 98.3 F 98.1 F Pulse Rate 60 59 L Respiratory Rate 16 18 Blood Pressure 121/64 119/75 Pulse Oximetry 98 95 Oxygen Delivery Method Room Air Oxygen Flow Rate 0 Narrative Exam Narrative: General: Older female sitting in bed and in acute distress, well-developed, well-nourished, appropriately interactive HEENT: Normocephalic, atraumatic. External ears without defect. Pupils equal, round, and reactive to light . Anicteric sclerae, moist conjunctivae, and no lid lag. Oropharynx free of erythema and cobble stoning with moist mucosa. Neck: Supple with full range of motion. No jugular venous distension. No bruits. No lymphadenopathy or thyromegaly. Cardiovascular: Regular rate and rhythm without murmurs, rubs, or gallops appreciated Pulmonary: Clear to auscultation bilaterally without crackles, wheezes, or rhonchi. Normal respiratory effort with no use of accessory muscles. Abdomen: Soft, bowel sounds present, mild tenderness to palpation in left quadrants, nondistended. No hepatosplenomegaly or masses appreciated. Extremities: No clubbing, cyanosis, or edema. Skin: Normal temperature, turgor, and texture; no rash, ulcers, or subcutaneous nodules appreciated. Neurological: Cranial nerves grossly intact. Very subtle expressive aphasia that is chronic from previous CVA. Psychiatric: Mildly anxious and appears dressed mood and normal affect. Alert and oriented to person, place, and time. Objective Labs Result Diagrams: 04/01/19 08:30 04/02/19 09:17 Labs: Laboratory Results - last 24 hr 04/01/19 04/02/19 19:00 09:17 Sodium 140 Potassium 3.9 Chloride 101 Carbon Dioxide 30 BUN 6 L Creatinine 0.70 Estimated GFR > 60.0 BUN/Creatinine Ratio 8.6 Glucose 105 Calcium 8.9 Magnesium 1.9 Stl C. cayetanensis PCR Not detected Stool Rotavirus (PCR) Not detected Stool Adenovirus (PCR) Not detected Stool Astrovirus (PCR) Not detected Stool Cryptosporidium PCR Not detected Stl E.coli Shiga Tox PCR Not detected St Sh/Enteroin Ecoli PCR Not detected Stool E coli O157 PCR Not detected Stl Enterotoxigenic E PCR Not detected Stool EPEC (PCR) Not detected Stl E. histolytica PCR Not detected Stool Giardia Lamblia PCR Not detected Stl P. shigelloides PCR Not detected St Y.enterocolitica PCR Not detected Stool Vibrio (PCR) Not detected Stl Vibrio cholerae PCR Not detected Stl Enteroaggr Ecoli PCR Not detected Stl Norovirus GI/GII PCR Not detected Campylobacter (PCR) Not detected C. difficile Tox (PCR) Not detected Salmonella (PCR) Not detected Discharge Plan Discharge Plan Patient Disposition: Home Discharge comment: You are being discharged home. You were admitted for colitis for which it is unclear the type. Please keep your scheduled appointment with GI at [facility] on 04/05/19. You were prescribed Bentyl 10 mg every 6 hours to use sparingly for abdominal cramping. Recommend you be considered for Plavix and possibly a re-trial of low-dose and high potency statin such as rosuvastatin with close monitoring by your PCP to reduce your cholesterol levels and help prevent cardiovascular disease. Discharge Med Rec/Prescriptions Prescriptions: New dicyclomine 10 mg Capsule 10 mg PO Q6HR PRN (Reason: Spasms) Qty: 30 RF: 0 Continued pantoprazole 40 mg Tablet,Delayed Release (Dr/Ec) 40 mg PO DAILY RF: 0 fluoxetine [Prozac] 10 mg Capsule 10 mg PO DAILY RF: 0 Follow up/Referrals: Avelino Desouza MD [Primary Care Provider] - Provider Discharge Instructions Diet: Diet as Tolerated, Low-fat, Low-sodium and Low-cholesterol Activity: Activity as tolerated Visit Report/Discharge Packet Instructions: The Mediterranean Diet and Good Health, Tips for Reducing Stress in Your Life, DI for High Cholesterol-Adult Discharge Data Primary Care Provider: Avelino Desouza Quality VTE Deep Vein Thrombosis/Pulmonary Embolism Present on Admission: No
--- NOTE | 2019-04-02 20:48 | PM.OP.ENDO ---
Operative Date/Time/Diagnoses Date of procedure: 04/02/19 Time of procedure: 20:49 Pre-op diagnosis: rectal bleeding Post-op diagnosis: same Procedure & Clinicians Study performed: 1) Diagnostic EGD 2) Diagnostic Colonoscopy - complete, with ileal and sigmoid biopsies Same procedure as scheduled: Yes Indications: 68 yo woman with hx of abdminal pain and dark stools c/w GI bleeding. hx of colon polyps Surgeon: Yaniv Day Procedure Notes SCOAP/Timeout: completed Procedure in detail: Pt was taken to Endo suite a time-out was completed. She was sedated by anesthesia using propofol drip. The procedure started with the EGD. The endoscope was advanced through the oral cavity moved posterior within the glottis and entered the esophagus without difficulty. This is passed through the esophagus into the stomach to the level of the pylorus. The scope was advanced through pylorus into the 1st segment of the duodenum. Here the villi appeared to be quite healthy there were no ulceration for sources of bleeding. The scope was then slowly withdrawn into the stomach the pylorus greater than left for curvature as well as the body of the stomach were carefully inspected, the rugae appeared to be normal robust and healthy. Again there was no sources of bleeding. The scope was retroflexed in the fundus of the stomach was inspected. The GE junction was patulous with a small hiatal hernia with a Hill grade 4 valve. The scope was then drawn into the distal esophagus -the hiatal hernia was 1 cm in size. Just superior to this there was a Schatzki's ring within the esophagus -very far from obstructing. No metaplasia suspected. The remainder of the esophagus was unremarkable A colonoscopy then proceeded. A digital rectal exam was performed without lesions. 160 cm colonoscope was advanced through folds of the rectum in an colon until the cecum was encountered. Cecum was identified be an appendiceal orifice and a prominent ileocecal valve. The transverse colon was somewhat redundant and difficult to negotiate. Ileocecal valve was intubated the villi of the terminal ileum appeared to be healthy -nevertheless multiple random biopsies were obtained to evaluate for Crohn's. The scope was then slowly withdrawn inspecting the mucosal surfaces carefully. There was extensive diverticular disease throughout all aspects of the colon but most severe within the sigmoid colon. There is no evidence of active inflammation. No residual clot or evidence of active bleeding. There was a small segment of the sigmoid colon that appeared to have some subtle mucosal erosions -this may have constituted scope trauma, nevertheless mortician supplies sales representative biopsies were obtained. Scope was withdrawn to the level of the rectum and retroflexed -no lesion, mucosa appeared healthy. No where did identified evidence of ischemic colitis. 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 Particularly severe in sigmoid 4) No mucosal ischemia 5) Subtle erosion in sigmoid colon - biopsied 6) Healthy rectum 7) Terminial ileum villi healthy - s/p random biopsy Most likely source of bleeding diverticular Post-procedure Recommendations: Colonscopy in 5 years Plan for aftercare: to floor Follow up: as needed Disposition: PACU
--- NOTE | 2019-04-02 21:38 | SUR.PHASEI ---
2044 to pacu, sleeping on left side, resp unlabored, skin warm and dry. 2014 awoke spontaneously, denies discomfort. HOB elevated, ice chips given, tolerated well w/o coughing or choking. 2018 Report called to floor
--- NOTE | 2019-04-02 22:40 | PC.NURSE ---
Dr. Day stated ok for patient to remain over night and he will round with patient in the morning.
[2019-04-03] MEDS: SODIUM CHLORIDE 0.9% FLUSH 10 ML IV (02:56)
[2019-04-03 03:00] VITALS: BP 142/76; PULSE 56; RESP 20; TEMP 36.7; O2SAT 96
[2019-04-03 08:58] VITALS: BP 110/72; PULSE 65; RESP 16; TEMP 36.6; O2SAT 96
--- NOTE | 2019-04-03 09:08 | CM.DPNOTE ---
Addendum entered by Missy Mcgee LPN 04/03/19 15:20: Case discussed in Team Rounds. Pt was cleared for d/c by Dr. Velasquez and did d/c home as planned. She noted the d/c order for yesterday and changed that to reflect the new d/c order for today. Original Note: DCP:continued: EMR reviewed. See that pt went from PACU to acute care floor last night. Surgeon Dr. Day conferred with RN and stated that pt would stay overnight and he would see her today. Dr. Meyer does have a d/c summary in for yesterday. Dr. Velasquez is on for hospitalist service today.
[2019-04-03 12:15] VITALS: BP 124/73; PULSE 59; RESP 16; TEMP 36.2; O2SAT 94
--- NOTE | 2019-04-03 13:36 | PC.NURSE ---
Day Shift- Pt eager for discharge. Spoke with Dr. Velasquez around 1135, pt okay for discharge since this AM. According to RN note yesterday, Dr. England was to see pt in the AM. Dr. Velasquez spoke with Dr. Day around this same time and made aware. Dr. Day in to see pt around 1150. Pt requesting records to give to [facility] for her appt. Images printed from [facility] by Dr. Day to give to pt, copy left in pt's chart. Pt also given report on CT pelvis, abd. Discharge summary reviewed with pt, her and RN Coordinator Lalit. Pt stated had all belongings. PIV removed prior to discharge. Pt left unit with all belongings via wheelchair at 1152 with [employer] escort and her present to drive her home.
== END 2019-04-03 12:52 | disposition home or self-care (01) | DRG 387 ==
LOC: ED 03-31 00:32 → AC 03-31 01:23
PROVIDERS: Internal Medicine; Surgery; Admitting Provider Nurse Practitioner Gerontology; Emergency Provider Emergency Medicine; PCP Internal Medicine; Visit Provider Nurse Practitioner Gerontology
PROC: 0DJ08ZZ Inspection of Upper Intestinal Tract, Via Natural or Artificial Opening Endoscopic (ICD-10-PCS; CPT 43235; principal; 2019-04-02 18:30)
PROC: 0DJD8ZZ Inspection of Lower Intestinal Tract, Via Natural or Artificial Opening Endoscopic (ICD-10-PCS; CPT 45378; 2019-04-02 18:30)
DX: K51.50 Left sided colitis without complications (principal); K57.30 Diverticulosis of large intestine without perforation or abscess without bleeding; I69.320 Aphasia following cerebral infarction; F32.9 Major depressive disorder, single episode, unspecified; Z87.891 Personal history of nicotine dependence; R82.90 Unspecified abnormal findings in urine
CPT/HCPCS: 36591; 43235; 45380; 74177; 80048; 80053; 80061; 81001; 83036; 83605; 83690; 83735; 84145; 85025; 87086; 87507; 96361; 96374; 96375; 99231; 99232; 99283; 99285; J0744; J2250; J2405; J2543; J2704; J3010; Q9967

== ENCOUNTER → 2019-08-09 13:39 | Outpatient (CLI) | payer MEDICARE, SELFPAY ==
[2019-03-31 01:55] VITALS: BMI 25.4
[2019-08-09 14:38] LABS: Hemoglobin A1C% w Est Avg Glu 5.4 % (4.0-6.0)
[2019-08-09 14:44] LABS: Alanine Aminotransferase 33 IU/L (<35); Albumin 4.8 g/dL (3.5-5.0); Albumin Globulin Ratio 1.4 (1.0-2.8); Alkaline Phosphatase 65 U/L (38-126); Aspartate Aminotransferase 44 IU/L (14-36); BUN Creatinine Ratio 21.4 (6-22); Bilirubin Total 0.6 mg/dL (0.2-1.3); Blood Urea Nitrogen 15 mg/dL (7-17); Calcium 9.9 mg/dL (8.4-10.2); Carbon Dioxide 31 mmol/L (22-32); Chloride 100 mmol/L (98-107); Cholesterol 291 mg/dL (140-199); Estimated Glomerular Filt Rate > 60.0 mL/min (>60); Globulin 3.5 g/dL (1.7-4.1); Glucose 90 mg/dL (80-110); HDL Cholesterol 68 mg/dL (40-60); HEMOLYSIS < 15 (0-50); LDL Cholesterol Calculated 200 mg/dL (<100); Potassium 4.2 mmol/L (3.4-5.1); Sodium 141 mmol/L (137-145); Total Protein 8.3 g/dL (6.3-8.2); Triglycerides 116 mg/dL (35-150)
[2019-08-09 15:21] LABS: Vitamin D 25 Hydroxy (D3) 24.3 ng/mL (30.0-100.0)
== END ==
PROVIDERS: PCP Internal Medicine; Visit Provider Nurse Practitioner Family
DX: E78.2 Mixed hyperlipidemia (principal); R73.9 Hyperglycemia, unspecified; E55.9 Vitamin D deficiency, unspecified
CPT/HCPCS: 36415; 80053; 80061; 82306; 83036

== ENCOUNTER → 2019-12-14 13:35 | Outpatient (CLI) | payer MEDICARE, SELFPAY ==
[2019-03-31 01:55] VITALS: BMI 25.4
[2019-12-14 14:14] LABS: BUN Creatinine Ratio 22.9 (6-22); Blood Urea Nitrogen 16 mg/dL (7-17); Calcium 9.6 mg/dL (8.4-10.2); Carbon Dioxide 29 mmol/L (22-32); Chloride 99 mmol/L (98-107); Estimated Glomerular Filt Rate > 60.0 mL/min (>60); Glucose 91 mg/dL (80-110); HEMOLYSIS < 15 (0-50); Potassium 3.9 mmol/L (3.4-5.1); Sodium 138 mmol/L (137-145)
--- NOTE | 2019-12-14 14:37 | DI.CT.S_ITS ---
PROCEDURE: CT ANGIO ABDOMEN PELVIS INDICATIONS: unspecified abdominal pain TECHNIQUE: After the administration of intravenous contrast, 2.5 mm sections acquired from the diaphragm to the iliac crests. 10 mm maximum intensity projection (MIP) coronal and sagittal reformats were then performed. For radiation dose reduction, the following was used: automated exposure control. COMPARISON: [facility], CT, CT ABDOMEN PELVIS W CON, 03/30/2019, 23:05. FINDINGS: Image quality: Excellent. Extravascular tissues: Lung bases are clear. Heart size is normal. Liver is normal in size and enhancement. Gallbladder demonstrates new wall thickening, measuring 4 mm in thickness. No evidence of surrounding fat stranding. Biliary system is non dilated. Pancreas enhances normally. Spleen is normal in size and enhancement. No adrenal nodules. Kidneys are normal in size and enhancement, without hydronephrosis. Non-opacified bowel loops demonstrate normal wall thickness and caliber. Normal appendix. No free fluid or air. No retroperitoneal or mesenteric adenopathy. No ventral hernias. No suspicious bony abnormalities. No vertebral body compression fractures. Abdominal aorta: Mild diffuse calcific plaque, causing mild diffuse stenosis. No aortic dissection, nor aneurysm. Mesenteric arteries: There is a moderate calcific stenosis of the celiac artery origin. Superior and inferior mesenteric arteries are patent. Renal arteries: Single bilateral renal arteries are present, and there is a mild origin stenosis involving the left renal artery. Right renal artery is patent. IMPRESSION: 1. Moderate celiac artery origin stenosis. Otherwise patent mesenteric arterial vasculature. 2. Mild left renal artery origin stenosis. Patent right renal artery. 3. Mild diffuse aortic stenosis without dissection nor aneurysm. 4. New thickening of the gallbladder wall, without surrounding inflammatory change. If there is clinical evidence for cholecystitis, further assessment with ultrasound is recommended. Dictated by: Bayron Holland M.D. on 12/14/2019 at 14:53 Approved by: Bayron Holland M.D. on 12/14/2019 at 15:01
== END ==
PROVIDERS: PCP Internal Medicine; Referring Provider Surgery; Visit Provider Surgery
DX: R10.9 Unspecified abdominal pain (principal); I35.0 Nonrheumatic aortic (valve) stenosis; I77.4 Celiac artery compression syndrome; I70.1 Atherosclerosis of renal artery
CPT/HCPCS: 36415; 74174; 80048; Q9967

== ENCOUNTER → 2020-08-29 10:08 | Outpatient (CLI) | payer MEDICARE, SELFPAY ==
[2019-03-31 01:55] VITALS: BMI 25.4
--- NOTE | 2020-08-29 | DI.US.S_ITS ---
PROCEDURE: US PELVIC COMPLETE INDICATIONS: Lower abdominal pain, unspecified TECHNIQUE: Real-time scanning was performed of the pelvic organs, with image documentation. Additional endovaginal scanning was necessary due to incomplete visualization of the adnexal and endometrial structures by transabdominal scanning. COMPARISON: [facility], US, US ABDOMEN COMPLETE, 08/29/2020, 11:28. [facility], CT, CT ANGIO ABDOMEN PELVIS, 12/14/2019, 14:18. FINDINGS: Uterus: Uterus is normal in size at 6.8 x 3.1 x 4.3 cm. The endometrium measures 5 mm in combined thickness. Ovaries: The right ovary measures 1.8 x 1.1 x 1.5 cm. The left ovary measures 1.6 x 1.2 x 1.3 cm. The ovaries have a normal sonographic appearance. No adnexal masses are seen. No findings of ovarian torsion are detected. Other: No pathologic free abdominal or pelvic fluid. IMPRESSION: Unremarkable pelvic ultrasound, without an imaging explanation found for the patient's presenting symptoms. Dictated by: Adebayo Beck M.D. on 08/29/2020 at 12:41 Approved by: Adebayo Beck M.D. on 08/29/2020 at 12:43
--- NOTE | 2020-08-29 | DI.US.S_ITS ---
PROCEDURE: US ABDOMEN COMPLETE INDICATIONS: Lower abdominal pain, unspecified TECHNIQUE: Real-time scanning was performed of the abdominal and retroperitoneal organs, with image documentation. COMPARISON: [facility], US, US PELVIC COMPLETE, 08/29/2020, 11:53. [facility], CT, CT ANGIO ABDOMEN PELVIS, 12/14/2019, 14:18. FINDINGS: Liver: Liver is normal in size and homogeneous in echotexture. Gallbladder: No findings of gallstones or sludge are seen. The gallbladder wall is not thickened, measuring 3 mm or less. No specific pericholecystic fluid is seen. The sonographic Chávez sign is negative. Biliary ducts: Intrahepatic bile ducts are non-dilated. Extrahepatic bile duct caliber measures 2-3 mm. Normal is 6-7 mm or less in diameter, or 10 mm or less post-cholecystectomy. Pancreas: Visualized portions of the pancreas are sonographically normal. Spleen: Spleen is normal in size and homogeneous in echotexture. Kidneys: Kidneys are normal in size and echotexture. Right kidney measures 10.2 cm long; left kidney measures 11.9 cm long. No hydronephrosis or nephrolithiasis. No solid masses. Aorta: Visualized aorta is normal in caliber at less than 3 cm. Iliacs: Proximal common iliac arteries are normal in caliber at less than 2.5 cm. IVC: Intrahepatic inferior vena cava is patent. Miscellaneous: No free abdominal fluid. IMPRESSION: No imaging explanation is found for this patient's presenting symptoms. The gallbladder demonstrates a normal sonographic appearance. No biliary dilatation is seen. Negative for hydronephrosis. Dictated by: Adebayo Beck M.D. on 08/29/2020 at 12:05 Approved by: Adebayo Beck M.D. on 08/29/2020 at 12:06
== END ==
PROVIDERS: PCP Physician Assistant; Referring Provider Internal Medicine Gastroenterology; Visit Provider Internal Medicine Gastroenterology
DX: R10.31 Right lower quadrant pain (principal); M05.9 Rheumatoid arthritis with rheumatoid factor, unspecified; E03.9 Hypothyroidism, unspecified; M95.9 Acquired deformity of musculoskeletal system, unspecified
CPT/HCPCS: 36415; 76700; 76856; 80053; 81001; 82306; 82607; 82672; 82746; 82955; 84144; 84403; 84439; 84443; 84481; 85025; 85041; 85651; 86038; 86376; 86430

== ENCOUNTER → 2020-08-29 10:14 | Outpatient (CLI) | payer MEDICARE, SELFPAY ==
[2019-03-31 01:55] VITALS: BMI 25.4
[2020-08-29 10:44] LABS: Bacteria Urine None Seen; RBC Urine None Seen (0-5/HPF); WBC Urine None Seen (0-5/HPF)
[2020-08-29 13:13] LABS: Add Manual Diff / Slide Review NO; Basophils Absolute Auto 100 /uL (0-100); Basophils Percent Auto 1.1 % (0-2); Eosinophils Absolute Auto 100 /uL (0-450); Eosinophils Percent Auto 1.8 % (2-4); Hematocrit 42.4 % (36-46); Hemoglobin 13.9 g/dL (12.0-16.0); Lymphocytes Absolute Auto 2100 /uL (1100-4500); Lymphocytes Percent Auto 31.5 % (25-40); Mean Corpuscular HGB Conc 32.9 % (30-36); Mean Corpuscular Hemoglobin 29.4 PG (26-34); Mean Corpuscular Volume 89.3 fL (80-100); Monocytes Absolute Auto 400 /uL (0-900); Monocytes Percent Auto 6.1 % (3-14); Neutrophils Absolute Auto 3900 /uL (1500-7000); Neutrophils Percent Auto 59.5 % (50-75); Platelet Count 250 X10^3/uL (150-400); Red Blood Cell Count 4.74 X10^6/uL (4.0-5.2); Red Cell Distribution Width 13.2 % (11.6-14.8); White Blood Cell Count 6.5 X10^3/uL (4.5-11.0)
[2020-08-29 13:31] LABS: Alanine Aminotransferase 18 IU/L (<35); Albumin 4.7 g/dL (3.5-5.0); Albumin Globulin Ratio 1.5 (1.0-2.8); Alkaline Phosphatase 76 U/L (38-126); Aspartate Aminotransferase 25 IU/L (14-36); BUN Creatinine Ratio 33.3 (6-22); Bilirubin Total 0.4 mg/dL (0.2-1.3); Blood Urea Nitrogen 18 mg/dL (7-17); Calcium 9.6 mg/dL (8.4-10.2); Carbon Dioxide 32 mmol/L (22-32); Chloride 102 mmol/L (98-107); Estimated Glomerular Filt Rate > 60.0 mL/min (>60); Globulin 3.1 g/dL (1.7-4.1); Glucose 84 mg/dL (80-110); HEMOLYSIS < 15 (0-50); Potassium 4.3 mmol/L (3.4-5.1); Sodium 138 mmol/L (137-145); Total Protein 7.8 g/dL (6.3-8.2)
[2020-08-29 13:47] LABS: Erythrocyte Sedimentation Rate 9 MM/HR (0-20)
[2020-08-29 13:49] LABS: Free T3, Triiodothyronine Free 3.49 pg/mL (2.77-5.27); Free T4, Direct Thyroxine 0.98 ng/dL (0.78-2.19)
[2020-08-29 14:02] LABS: Thyroid Stimulating Hormone 1.85 uIU/mL (0.47-4.68)
[2020-08-29 14:39] LABS: Folate 9.6 ng/mL (2.76-20.0); Vitamin B12 906 pg/mL (239-931)
[2020-08-29 14:59] LABS: Appearance Urine UA CLEAR; Bilirubin Urine UA NEGATIVE (NEGATIVE); Color Urine UA YELLOW; Glucose Urine UA NEGATIVE (Negative); Ketones Urine UA NEGATIVE (NEGATIVE); Leukocyte Esterase Urine UA TRACE (NEGATIVE); Nitrite Urine UA NEGATIVE (Negative); Occult Blood Urine UA TRACE-LYSED (Negative); Protein Urine UA NEGATIVE (Negative); Specific Gravity Urine UA <=1.005 (1.000-1.035); Urobilinogen Urine UA 0.2 E.U./dL (0.2)
[2020-08-29 15:21] LABS: Culture Indicated Urine Cult Not Indicated
[2020-08-29 17:39] LABS: Vitamin D 25 Hydroxy (D3) 31.2 ng/mL (30.0-100.0)
[2020-08-29 17:40] LABS: Progesterone, Total 0.61 ng/mL
[2020-08-29 20:25] LABS: Rheumatoid Factor < 8.6 IU/mL (<12.0)
[2020-08-30 07:40] LABS: Thyroid Peroxidase Antibodies <9 IU/mL (0-34)
[2020-09-01 14:43] LABS: ANA Screen, IFA Negative (.)
[2020-09-03 09:36] LABS: Estrogen 96 pg/mL (.)
[2020-09-03 18:04] LABS: Glucose-6-Phosphate Dehydrogen 240 (127-427)
== END ==
PROVIDERS: PCP Physician Assistant; Referring Provider Naturopath; Visit Provider Naturopath
DX: R10.31 Right lower quadrant pain (principal); E03.9 Hypothyroidism, unspecified; M05.9 Rheumatoid arthritis with rheumatoid factor, unspecified; M95.9 Acquired deformity of musculoskeletal system, unspecified
CPT/HCPCS: 36415; 80053; 81001; 82306; 82607; 82672; 82746; 82955; 84144; 84439; 84443; 84481; 85025; 85041; 85651; 86038; 86376; 86430

== ENCOUNTER → 2020-09-18 11:03 | Outpatient (CLI) | payer MEDICARE, SELFPAY ==
[2019-03-31 01:55] VITALS: BMI 25.4
[2020-09-18 11:58] LABS: Add Manual Diff / Slide Review NO; Basophils Absolute Auto 100 /uL (0-100); Eosinophils Absolute Auto 100 /uL (0-450); Eosinophils Percent Auto 1.4 % (2-4); Hematocrit 40.4 % (36-46); Hemoglobin 13.6 g/dL (12.0-16.0); Lymphocytes Absolute Auto 1800 /uL (1100-4500); Lymphocytes Percent Auto 28.5 % (25-40); Mean Corpuscular HGB Conc 33.6 % (30-36); Mean Corpuscular Hemoglobin 29.9 PG (26-34); Mean Corpuscular Volume 88.9 fL (80-100); Monocytes Absolute Auto 500 /uL (0-900); Monocytes Percent Auto 7.6 % (3-14); Neutrophils Absolute Auto 3800 /uL (1500-7000); Neutrophils Percent Auto 61.5 % (50-75); Platelet Count 263 X10^3/uL (150-400); Red Blood Cell Count 4.54 X10^6/uL (4.0-5.2); Red Cell Distribution Width 13.4 % (11.6-14.8); White Blood Cell Count 6.2 X10^3/uL (4.5-11.0)
[2020-09-18 12:21] LABS: Alanine Aminotransferase 17 IU/L (<35); Albumin 4.6 g/dL (3.5-5.0); Albumin Globulin Ratio 1.5 (1.0-2.8); Alkaline Phosphatase 64 U/L (38-126); Aspartate Aminotransferase 24 IU/L (14-36); BUN Creatinine Ratio 25.4 (6-22); Bilirubin Total 0.4 mg/dL (0.2-1.3); Blood Urea Nitrogen 17 mg/dL (7-17); Carbon Dioxide 29 mmol/L (22-32); Chloride 99 mmol/L (98-107); Estimated Glomerular Filt Rate > 60.0 mL/min (>60); Gamma Glutamyl Transpeptidase 26 U/L (12-43); Glucose 89 mg/dL (80-110); HEMOLYSIS < 15 (0-50); Lipase 272 U/L (23-300); Potassium 4.2 mmol/L (3.4-5.1); Sodium 136 mmol/L (137-145); Total Protein 7.6 g/dL (6.3-8.2)
== END ==
PROVIDERS: PCP Physician Assistant; Referring Provider Physician Assistant; Visit Provider Physician Assistant
DX: R10.9 Unspecified abdominal pain (principal)
CPT/HCPCS: 36415; 80053; 82977; 83690; 85025

== ENCOUNTER → 2020-10-01 13:06 | Outpatient (CLI) | payer MEDICARE, SELFPAY ==
[2019-03-31 01:55] VITALS: BMI 25.4
--- NOTE | 2020-10-01 13:08 | DI.RAD.S_ITS ---
PROCEDURE: FL BARIUM SWALLOW W SPEECH INDICATIONS: Dysphagia COMPARISON: None. TECHNIQUE: Examination was conducted in conjunction with speech pathology per standard protocol. In the lateral projection, filming was performed of the patient swallowing. AP projection filming may also be performed with patient swallowing. COMPARISON: FINDINGS: Function: The oral preparatory phase appears normal, with proper containment. The subsequent oral propulsive phase, pharyngeal phase, and esophageal phase of swallowing also appear normal with all proffered substances. No laryngotracheal penetration or aspiration. No pathologic vallecular pooling. Morphology: No cricopharyngeal bar is identified. No cervical esophageal webs. No Zenker's diverticulum. No strictures. IMPRESSION: No aspiration identified. Dictated by: Leon Keenan M.D. on 10/01/2020 at 14:35 Approved by: Leon Keenan M.D. on 10/01/2020 at 14:35
--- NOTE | 2020-10-02 08:25 | ST.SWALLOW ---
Visit Care Team Role Provider Type Michelle Arciniega PA-C Attending Provider Non-Staff Primary Care Provider Referring Provider Specialty: Medical Address: [address] [place] [address], [id number] Email: ST Modified Barium Swallow Study MEDICAID BILLING SPECIALIST Modified Barium Swallow Study Start: 10/01/20 15:14 Freq: Status: Active Protocol: Document 10/01/20 15:14 EB (Rec: 10/01/20 15:29 EB [id number]) Modified Barium Swallow Study Total Time Visit Start Time 14:30 Visit Stop Time 14:50 Total Visit Minutes 20 Referral Referring Physician Michelle Arciniega PA-C Reason for Referral Dysphagia Setting Setting Outpatient Care Patient Information Identification Type Name,Date of Patient History Patient reported that she experienced a stroke in 2017 after which she has had word- finding difficulties and intermittent difficulty with swallowing. She has not received previous ST. Patient states that for the last 18 months she has episodes of choking on liquids and solids with regurgitation approximately once every few weeks. Episodes last ~1 hour. Patient has a diagnosis of Diverticular disease and Schatzki's ring. When asked about the presence of acid reflux, patient reported that she had been taking medication for reflux and stopped 6 months ago per MD recommendation. Patient said that stress may be a possible trigger of her episodes. Subjective Observations Patient arrived on time and was alert, oriented, and cooperative during the study. Study was conducted and note was written by student MEDICAID BILLING SPECIALIST Josee Guevara. Patient Positioning Position View Lat-A/P Imaging Lateral View Textures Administered Trials Presented Thin Liquid via Spoon,Thin Liquid via Cup,[place] Liquid via Spoon,[place] Liquid via Cup,Honey Liquid via Spoon, Pudding Thick Liquid via Spoon ,Regular Textures Oral Phase Source: MBSIMP (TM) (C) Bolus Specific Scoring Grid Lip Closure No Impairment (WNL) Tongue Control During Bolus Hold No Impairment (WNL) Bolus Prep/Mastication No Impairment (WNL) Bolus Transport/Lingual Motion No Impairment (WNL) Oral Residue Mild Impairment Residue Clearing Mild Impairment Additional Oral Phase Observations Residue collection noted on the tongue occasionally throughout the study. Patient used an effective double swallow to clear oral residue. Initiation of pharyngeal swallow was delayed, occurring at the level of the posterior laryngeal surface of the epiglottis. Pharyngeal Phase Source: MBSIMP (TM) (C) Bolus Specific Scoring Grid Soft Palate Elevation No Impairment (WNL) Tongue Base Strength/Range of Motion Mild Impairment Residue Along the Tongue Base Yes Laryngeal Elevation No Impairment (WNL) Anterior Hyoid Movement No Impairment (WNL) Epiglottic Range of Motion No Impairment (WNL) Vallecular Residue Yes Laryngeal Vestibular Closure No Impairment (WNL) Pharyngeal Stripping Wave Mild Impairment Pharyngeal Contraction No Impairment (WNL) Upper Esophageal Sphincter Opening No Impairment (WNL) Residue in the Pyriform Sinuses No Esophageal Clearance Upright Position No Impairment (WNL) Pharyngoesophageal Backflow Observed No Additional Pharyngeal Phase Observations While the pharyngeal stripping wave was present, it was diminished. There was also a trace column of contrast between the tongue base and pharyngeal wall, indicating reduced tongue base retraction. A collection of pharyngeal residue was noted within the vallecula. Patient implemented a double-swallow which cleared residue. A/P View Textures Administered Trials Presented [place] Liquid via Spoon, Pudding Thick Liquid via Spoon A/P View Observations Pharyngeal Contraction No Impairment (WNL) Esophageal Function No Impairment (WNL) Esophageal Clearance Upright Position No Impairment (WNL) Esophageal Observations Esophageal Function There was complete clearance of nectar and honey thick boluses in the upright position. Clinical Impressions Dysphagia Type Mild Oral Pharyngeal Dysphagia Findings Patient has mild oral pharyngeal dysphagia characterized by delayed swallow initiation, oral and pharyngeal residue, and diminished pharyngeal stripping wave and tongue base retraction. Patient would benefit from a follow-up session in the outpatient speech therapy setting to provide education and strengthening exercises including effortful swallow and tongue pull-backs. Patient may also benefit from a ENT referral for further assessment of choking episodes and ongoing reflux management. Rehabilitation Potential Good Patient Appropriate for Therapy Yes Recommendations Diet Liquids Order Thin Diet Order Regular Medication Recommendation As Tolerated Aspiration Precautions Recommended Precautions Upright at 90 Degrees Treatment Plan Therapy Recommendations Outpatient Speech Therapy,Base of Tongue Exercises Recommended Referrals ENT Consult Compensatory Strategies Recommendations Double Swallow
== END ==
PROVIDERS: PCP Physician Assistant; Referring Provider Physician Assistant; Visit Provider Physician Assistant
DX: R13.10 Dysphagia, unspecified (principal)
CPT/HCPCS: 74230; 92611

== ENCOUNTER → 2021-05-05 12:13 | Outpatient (CLI) | payer MEDICARE, SELFPAY ==
[2021-04-07 17:43] VITALS: BMI 25.4
--- NOTE | 2021-05-05 12:16 | DI.US.S_ITS ---
PROCEDURE: US EXTREMELY NONVASC UPPER RT INDICATIONS: GANGLION CYST TECHNIQUE: Real-time scanning was performed of the right wrist, with image documentation. COMPARISON: None. FINDINGS: There is a 1.3 x 0.7 x 1.2 centimeter complex ganglion cyst at the right 1st CMC joint. IMPRESSION: 1.3 x 0.7 x 1.2 centimeter right 1st CMC joint complex ganglion cyst. Recommend orthopedic consultation and MRI of the wrist for further evaluation if clinically indicated. Dictated by: Abigail White MD, PhD on 05/05/2021 at 15:56 Approved by: Abigail White MD, PhD on 05/05/2021 at 15:57
== END ==
PROVIDERS: PCP Physician Assistant; Referring Provider Physician Assistant; Visit Provider Physician Assistant
DX: M67.431 Ganglion, right wrist (principal)
CPT/HCPCS: 76882

== ENCOUNTER → 2021-05-16 12:23 | Outpatient (CLI) | payer MEDICARE, SELFPAY ==
[2021-04-07 17:43] VITALS: BMI 25.4
[2021-05-16 12:41] LABS: Appearance Urine UA CLEAR; Bilirubin Urine UA NEGATIVE (NEGATIVE); Color Urine UA YELLOW; Glucose Urine UA NEGATIVE (Negative); Ketones Urine UA NEGATIVE (NEGATIVE); Leukocyte Esterase Urine UA NEGATIVE (NEGATIVE); Nitrite Urine UA NEGATIVE (Negative); Occult Blood Urine UA 2+ (Negative); Protein Urine UA NEGATIVE (Negative); Urobilinogen Urine UA 0.2 E.U./dL (0.2)
[2021-05-16 12:49] LABS: Bacteria Urine None Seen; Culture Indicated Urine Cult Not Indicated; Mucus Urine 1+ (Negative); RBC Urine 1-5/HPF (0-5/HPF); Squamous Epithelial Cell Urine 0-1 /HPF (0-5/HPF); WBC Urine 0-1/HPF (0-5/HPF)
== END ==
PROVIDERS: PCP Physician Assistant; Referring Provider Urology; Visit Provider Urology
DX: N73.6 Female pelvic peritoneal adhesions (postinfective) (principal); R10.2 Pelvic and perineal pain
CPT/HCPCS: 81001

== ENCOUNTER → 2021-05-20 08:55 | Outpatient (CLI) | payer MEDICARE, SELFPAY ==
[2021-04-07 17:43] VITALS: BMI 25.4
[2021-05-20 09:24] LABS: COVID19 -Nasal RAPID Negative (Negative)
== END ==
PROVIDERS: PCP Physician Assistant; Visit Provider Obstetrics & Gynecology
DX: Z01.812 Encounter for preprocedural laboratory examination (principal); Z20.822 Contact with and (suspected) exposure to COVID-19
CPT/HCPCS: 87635; C9803

== ENCOUNTER 2021-05-21 06:36 | Day surgery (SDC) | payer MEDICARE, SELFPAY ==
[2021-04-07 17:43] VITALS: BMI 25.4
[2021-05-19 08:34] VITALS: BMI 26.8
[2021-05-21] VITALS (9 sets, daily range): BP systolic 110–130; BP diastolic 55–79; PULSE 60–76; RESP 10–20; TEMP 36.2–36.6; O2SAT 93–99; BMI 26.8
--- NOTE | 2021-05-21 | PATH_ITS ---
[facility] Accession Number: [id number] . 01 Material submitted: . uterus - UTERUS,BILATERAL OVARIES,BILATERAL FALLOPIAN TUBES . 02 Diagnosis: Uterus, Bilateral Ovaries, Bilateral Fallopian Tubes, Laparoscopic Supracervical Hysterectomy with Bilateral Salpingo-oophorectomy and Cystoscopy (Fragmented Uterus Weight 41 grams): Endometrium with features of cystic atrophy; negative for glandular hyperplasia, cytologic atypia, or malignancy. Myometrium with focal involvement by adenomyosis. Uterine serosa with no significant histomorphologic abnormality. Fallopian tubes x2 with benign paratubal cysts (1-2 mm); negative for atypia or malignancy. Ovaries x2 with cysts (1 mm) with scattered benign inclusion cysts (less than 1 mm) and no significant histomorphologic abnormality. [facility] 05/25/2021 1418 Local . 02 Electronically signed: . Renae Bryan MD, Pathologist NPI- [id number] . 01 Gross description: . The specimen is received in formalin, labeled uterus, bilateral ovaries, bilateral fallopian tubes and consists of a fragmented uterus with bilateral fallopian tubes and ovaries weighing 41 grams and measuring 6.5 x 6.0 x 4.0 cm in aggregate. The serosa is andersen-pink, focally hemorrhagic and smooth. A cervix is not identified. Sectioning reveals a andersen-pink endometrium measuring 0.1 cm in thickness. The myometrium is andersen-pink and trabeculated, measuring 1.4 cm approximately in thickness. Also received are two ovaries measuring 1.5 x 1.1 x 0.6 cm and 1.9 x 1.1 x 0.7 cm. The external surfaces are andersen and cerebriform. Sectioning reveals a andersen ovarian stroma with no masses or lesions identified. The fallopian tubes measure 3.5 cm in length by 0.8 cm in diameter and 5.0 cm in length by 0.6 cm in diameter. The serosa is andersen-pink with fibrinous adhesions and multiple paratubal cysts ranging from 0.1-0.2 cm. Sectioning reveals a andersen mucosa and a stellate lumen measuring 0.2 cm in diameter. Floor Installer sections are submitted. . A1-A4: Floor Installer uterus. A5: Bisected ovary, entirely submitted. A6: Attached fallopian tube, customer care representative central cross sections and bisected fimbria. A7: Other bisected ovary, entirely submitted. A8: Other attached fallopian tube, customer care representative cross sections and bisected fimbria. ([id number]) /MRV 05/25/2021 1210 Local . 02 Pathologist provided ICD-10: R10.2, N73.6 . 02 CPT . 189641 Performed at: 01 [facility] [address] [place] [address], [place], [place] [id number] MD Kayode Smalls MD Phone: [phone] Performed at: 02 [facility] [id number] [place] [id number] MD Patricia Mitchell MD Phone: [phone]
--- NOTE | 2021-05-21 07:40 | PM.PREOP ---
Pre-operative Note COVID-19 COVID-19 status: Negative Result date/Date tested (Pos, Neg/Pending): 05/20/21 Interval Note History & Physical reviewed/Exam performed by Physician: Yes Changes to H&P: No
[2021-05-21] MEDS: CEFAZOLIN 1 GM VIAL 2 GM IV (08:01)
--- NOTE | 2021-05-21 08:31 | PM.PREOP ---
Pre-operative Note COVID-19 COVID-19 status: Negative Result date/Date tested (Pos, Neg/Pending): 05/20/21 Interval Note History & Physical reviewed/Exam performed by Physician: Yes Changes to H&P: No H&P completed within 30 days and has changed as indicated here:: 05/13/21
[2021-05-21] MEDS: ACETAMINOPHEN IV 1,000 MG/100 ML VIAL 400 MG IV (08:40)
--- NOTE | 2021-05-21 08:59 | SUR.OPER ---
Lithotomy on padded OR bed. [place] Pad Positioner under torso. Head on pillow, arms padded and tucked at sides. Legs secured in padded yellow fins stirrups.
--- NOTE | 2021-05-21 09:06 | PM.OP.1 ---
Procedure & Clinicians Procedure: Cystoscopy with placement of bilateral ureteral lighted catheters, placement of Ferrer catheter Same procedure as scheduled: Yes Indications: This is a 70-year-old female who is being brought to the operating room by Dr. Greenwood for supracervical hysterectomy for postinflammatory pelvic adhesions and pelvic pain. Dr. Greenwood has requested that patient have lighted ureteral catheters place to aid in protecting the ureters. Surgeon: Avelino Chamberlain Click Yes if Unassisted: Yes Anesthesia Type: General Operative Notes Findings: External genitalia normal, urethra normal along its length, ureteral orifices in normal position with clear efflux, bladder mucosa is normal. There are no papillary lesions, stones or other pathology within the bladder. The ureteral catheters and left in good position right and left. Efflux of clear urine is noted once the catheter was replaced. Sixteen [facility] [place] 5 cc Ferrer catheter is left in good position with 10 cc of sterile water in the balloon. Closure Type: not applicable Specimen(s): none sent Prosthetic devices, grafts, tissues, transplants, or devices: Bilateral lighted ureteral catheters, 16 [place] 5 cc Ferrer catheter with 10 cc of sterile water in the balloon. Estimated Blood Loss (mL): 0 Blood products transfused: none Procedure in detail: After informed consent was obtained, the patient was identified and brought to the operating room. Patient was then placed in the supine position and anesthesia was induced and maintained. With an adequate level of anesthesia the patient was then transitioned to the lithotomy position, prepped with a sterilizing prepped and draped in a sterile fashion. After prepping, draping and ensuring an adequate level of anesthesia a 21 [place] cystoscope was passed through the urethra into the bladder. Cystoscopy was then performed. The ureteral orifices were identified and the sheath of the lighted catheter was passed up and into the left collecting system. Then with the double bridge a 2nd sheath was passed up and into the right collecting system. The scope was then backed out the sheath left in good position. Sixteen [facility] [place] 5 cc Ferrer was then passed through the urethra and the bladder balloon filled with 10 cc sterile water. The inner core of the lighted system the fiberoptic fibers within passed up and into the sheath and left in good position. These were then secured to the Ferrer catheter with a Tegaderm the cup planes were then secured with Tegaderm right and left. Note the catheter with 3 large bars was passed up and into the right collecting system. With these done in the catheters in good position the patient went on to procedure per Dr. Greenwood this will be dictated under separate cover. Patient tolerated my procedure well and there were no complications. Complications: none Post-operative Condition: stable Disposition: other (Patient then will transition to procedure by Dr. Greenwood) Plan for aftercare: Per Dr. Greenwood
[2021-05-21] MEDS: BUPIVACAINE 0.5% (PF) 30 ML, EPINEPHrine 0.15 MG INJ (09:12)
[2021-05-21] MEDS: ROPIVACAINE 0.2% PF 2 MG/ML 10ML AMP 20 ML INJ (09:16)
--- NOTE | 2021-05-21 09:46 | P.OP_ITS ---
Operative Date/Time/Diagnoses Date of procedure: 05/21/21 Time of procedure: 09:46 Pre-op diagnosis: Pelvic pain Known pelvic adhesions Post-op diagnosis: same Procedure & Clinicians Procedure: Procedures Operation Date: 05/21/21 07:45 Actual Procedure Side Surgeon s Cystoscopy w/ Bilateral lighted ureteral catheter placement Avelino Chamberlain MD p Laparoscopic Supracervical Hysterectomy w/ bilateral salpingo-oophorectomies Blessing Greenwood MD Indications: Pelvic pain Known pelvic adhesions Surgeon: Blessing Greenwood Deputy Commonwealth'S Attorney: Jacob Rivera Anesthesia Type: General and Local Operative Notes Findings: 7 week size anteverted uterus Closure Type: primary Specimen(s): left tube & ovary, right tube & ovary and uterus Applied: catheter Estimated blood loss (mL): 50 Blood products transfused: none Procedure in detail: The patient was taken to the operating room where she was placed in the dorsal supine position. After adequate general endotracheal anesthesia was achieved, she was placed in the dorsal lithotomy position, and prepped and draped in the usual sterile fashion. A timeout was performed. A bivalve speculum was placed into the vagina and the anterior lip of the cervix grasped with a single-tooth tenaculum. The cervical os was sequentially dilated until the ZUMI uterine manipulator could pass easily into the endometrial cavity. The single-tooth tenaculum was removed from the anterior lip of the cervix, and the bivalve speculum was removed from the vagina. Attention was then turned to the abdomen where 6 mL of half percent Marcaine with epinephrine were injected in the umbilical fold. A 5 mm incision was made. The Veress needle was placed into the peritoneal cavity, and its placement confirmed by aspiration and drop test. The Veress needle was removed. A 5 mm trocar was placed without difficulty. 2 other incisions were made 4cm lateral to the midline after 5 mL of half percent Marcaine with epinephrine were injected. These were 5 mm incisions. Two, 5 mm trochars were placed under direct visualization. The right tube and ovary were grasped with an atraumatic grasper. Using the plasma kinetic with settings of 40 W the mesosalpinx was cauterized and cut all the way down to the cornua of the uterus. The cornua of the uterus was then grasped with an atraumatic grasper. The utero-ovarian ligaments were cauterized and cut. The round l igament and broad ligament were cauterized and cut with plasma kinetic. Hemostasis was achieved. The bladder flap was created using the plasma kinetic with cautery and cut prison across. The uterine arteries on the right side were extensively cauterized with plasma kinetic. All of this was repeated on the left side. The remainder of the bladder flap was created using the plasma kinetic, and the bladder taken down off the lower uterine segment and cervix. Using the L[place], the cervix was amputated from the uterus 2 cm above the uterosacral ligaments, after the ZUMI uterine manipulator was removed from the uterus and a moistened sponge stick was placed in the vagina. There was a small amount of bleeding noted from the posterior edge of the cervix, and this was cauterized for hemostasis. 6 mL of half percent Marcaine with epinephrine were injected above the pubic symphysis. A 12mm incision was made. A 12 mm trocar was placed under direct visualization. An Endobag was placed through the suprapubic incision and the uterus placed into the Endobag. The trocar was removed. The edges of the bag were brought up through the skin. The uterus was grasped with a Yuridia. The Justus was placed into the endobag. The uterus was morcellated in approximately 6 pieces. The tubes and ovaries were also removed from the Endobag. The Endobag was removed from the peritoneal cavity. The pelvis was copiously irrigated with warm normal saline. No bleeding was noted. 20 mL of 0.2% ropivacaine were placed over the pelvic pedicles. The instruments were removed from the abdomen. The CO2 was allowed to escape. The suprapubic incision was closed on the fascia with 0 Vicryl. All of the incisions were closed with 4-0 Biosyn in a subcuticular fashion. Steri strips, 2x2's and op sites were placed over the incisions. The moistened sponge stick was removed from the vagina. Sponge, lap, and instrument counts were correct x 2. The patient tolerated the procedure well, was taken to PACU in stable condition. Complications: none Post-operative Condition: stable Disposition: PACU Plan for aftercare: Home after recovery
== END 2021-05-21 11:40 | disposition home or self-care (01) ==
LOC: OR 06:41 → AC 06:41
PROVIDERS: Urology; PCP Physician Assistant; Referring Provider Obstetrics & Gynecology; Visit Provider Obstetrics & Gynecology
PROC: (CPT 52005; principal; 2021-05-21 07:45)
PROC: 0UT94ZL Resection of Uterus, Supracervical, Percutaneous Endoscopic Approach (ICD-10-PCS; CPT 58542; 2021-05-21 07:45)
DX: N73.6 Female pelvic peritoneal adhesions (postinfective) (principal); Z86.73 Personal history of transient ischemic attack (TIA), and cerebral infarction without residual deficits; F32.9 Major depressive disorder, single episode, unspecified; K21.9 Gastro-esophageal reflux disease without esophagitis; E03.9 Hypothyroidism, unspecified; N80.0 Endometriosis of uterus; N83.8 Other noninflammatory disorders of ovary, fallopian tube and broad ligament; N83.299 Other ovarian cyst, unspecified side
CPT/HCPCS: 58542; 52005; J0131; J0171; J0690; J1100; J1885; J2250; J2405; J2704; J2795; J3010

== ENCOUNTER → 2021-08-12 13:29 | Outpatient (ROUT) | payer MEDICARE, SELFPAY ==
[2021-04-07 17:43] VITALS: BMI 25.4
[2021-08-12 16:22] LABS: COVID19 -Nasal RAPID Negative (Negative)
== END ==
PROVIDERS: PCP Physician Assistant; Visit Provider Physician Assistant
DX: Z20.822 Contact with and (suspected) exposure to COVID-19 (principal)
CPT/HCPCS: 87635

== ENCOUNTER → 2021-08-20 09:56 | Outpatient (CLI) | payer MEDICARE, SELFPAY ==
[2021-04-07 17:43] VITALS: BMI 25.4
[2021-08-24 13:15] LABS: SARS-CoV-2 Antibody Titer <0.8
== END ==
PROVIDERS: PCP Physician Assistant; Referring Provider Physician Assistant; Visit Provider Physician Assistant
DX: Z20.822 Contact with and (suspected) exposure to COVID-19 (principal)
CPT/HCPCS: 36415; 86769

== ENCOUNTER → 2021-08-24 12:09 | Outpatient (ROUT) | payer MEDICARE, SELFPAY ==
[2021-04-07 17:43] VITALS: BMI 25.4
[2021-08-24 12:59] LABS: COVID19 -Nasal RAPID Negative (Negative)
== END ==
PROVIDERS: PCP Physician Assistant; Visit Provider Physician Assistant
DX: Z20.822 Contact with and (suspected) exposure to COVID-19 (principal)
CPT/HCPCS: 87635

== ENCOUNTER → 2021-08-26 12:57 | Outpatient (ROUT) | payer MEDICARE, SELFPAY ==
[2021-04-07 17:43] VITALS: BMI 25.4
[2021-08-26 13:47] LABS: COVID19 -Nasal RAPID Negative (Negative)
== END ==
PROVIDERS: PCP Physician Assistant; Visit Provider Physician Assistant
DX: Z20.822 Contact with and (suspected) exposure to COVID-19 (principal)
CPT/HCPCS: 87635

== ENCOUNTER → 2021-09-14 12:31 | Outpatient (ROUT) | payer MEDICARE, SELFPAY ==
[2021-04-07 17:43] VITALS: BMI 25.4
[2021-09-14 15:31] LABS: COVID19 -Nasal RAPID Negative (Negative)
== END ==
PROVIDERS: PCP Physician Assistant; Visit Provider Physician Assistant
DX: Z20.822 Contact with and (suspected) exposure to COVID-19 (principal)
CPT/HCPCS: 87635

== ENCOUNTER 2021-10-05 07:23 | Emergency (ER) | payer MEDICARE, SELFPAY ==
[2021-04-07 17:43] VITALS: BMI 25.4
[2021-10-05] VITALS (11 sets, daily range): BP systolic 126–152; BP diastolic 58–75; PULSE 52–63; RESP 16; TEMP 36.8; O2SAT 92–99; BMI 26.6
--- NOTE | 2021-10-05 07:33 | ED.ABDPAIN ---
HPI - Abdominal Pain General Chief Complaint: Abdominal Pain Stated Complaint: ABD Pain Time Seen by Provider: 10/05/21 07:33 Source: patient and old records reviewed Mode of arrival: Ambulatory Limitations: no limitations History of Present Illness HPI narrative: This is a 71-year-old female who presents with lower pelvic abdominal pain which is crampy in nature waxing and waning in intensity. Patient states she has had similar in the past related ischemic colitis. Patient denies fevers. She has had nausea when her pain is its most intense with some dry heaves but no active vomiting. She states that it has lower pelvic, increasing cramping that feels almost like childbirth and then will start to improve. She has had some lower back discomfort but states that is not a significant. She has had diarrhea like stools with blood in them and states it has become more blood than stool overnight. This all started about midnight last night. Patient denies dysuria urgency or frequency. She notes that she has been seen for ex lap, colonoscopy, CT scans in even been evaluated by vascular surgery in the past at [facility] with Dr. Armas and Dr. Merino. Patient states she did have a hysterectomy last May. Patient states she is on ADHD medications and fluoxetine. She denies other intra-abdominal surgeries. No known drug allergies. No tobacco, occasional alcohol, no illicit. She is accompanied by her . Her PCP is Maryanne thompson. Related Data Home Medications Medication Instructions Recorded Confirmed fluoxetine 10 mg capsule (Prozac) 10 mg PO DAILY 03/31/19 07/02/21 dextroamphetamine-amphetamine 10 10 mg PO BID 03/11/21 07/02/21 mg tablet (Adderall) Fiorinal 05/21/21 07/02/21 Previous Rx's Medication Instructions Recorded dicyclomine 10 mg capsule 10 mg PO Q6HR PRN #30 cap 04/02/19 oxycodone 5 mg tablet 5 mg PO Q4H PRN #20 tab 05/21/21 amoxicillin 875 mg-potassium 1 tab PO Q12H #20 tab 10/05/21 clavulanate 125 mg tablet dicyclomine 10 mg capsule 10 mg PO TID PRN #20 cap 10/05/21 Allergies Allergy/AdvReac Type Severity Reaction Status Date / Time tolmetin Allergy Verified 10/05/21 07:45 pneumococcal vaccine AdvReac Verified 10/05/21 07:45 Review of Systems Review of Systems ROS Unobtainable: All systems reviewed & are unremarkable except as noted in HPI and below Patient History Medical History Abnormal Pap smear of cervix (~1984) Actinic keratosis ADHD Anemia Colon polyps CVA (cerebral vascular accident) (~2017) Dental abscess Depression Depression as late effect of cerebrovascular accident (CVA) Dyslexia Esophageal ring (~1989) Genital warts (~1968) GERD (gastroesophageal reflux disease) Herpes (~1983) HLD (hyperlipidemia) Human papilloma virus (~1983) Hypothyroidism (~1964) Irritable bowel syndrome Ovarian cyst (~1979) Plantar warts Vertigo Family History Father No problems noted. Mother No problems noted. Social History household members: spouse and family Smoking Status: Former smoker alcohol intake: current Smoking Status: Former smoker alcohol intake frequency: 0-2 drinks per day Substance Use Type: does not use Exam Narrative Exam Narrative: GENERAL: Alert and oriented x three, mild distress. HEENT: Head normocephalic, atraumatic, EOMI, pupils reactive, face symmetric, moist mucous membranes NECK: Supple, full range of motion CARDIOVASCULAR: Regular rate and rhythm without murmurs, rubs or gallops. RESPIRATORY: Breath sounds equal bilaterally, no wheezes rales or rhonchi. ABDOMEN: Soft, nontender. Nondistended. Normoactive bowel sounds all 4 quadrants. No guarding or rebound, rigidity, no mass : No CVA tenderness EXTREMITIES: Normal range of motion, no clubbing or edema. Neurovascularly intact NEUROLOGICAL: Cranial nerves II through XII grossly intact. Moving all extremities SKIN: Warm, dry, no petechiae, no rashes or lesions. Initial Vital Signs Initial Vital Signs: Vital Signs Pulse Rate 63 10/05/21 07:25 Pulse Oximetry 93 10/05/21 07:25 Course Orders Ordered: Discontinued Medications Dicyclomine HCl (Dicyclomine 10 Mg Capsule) 10 mg PO NOW ONE Stop: 10/05/21 07:52 Last Admin: 10/05/21 08:00 Dose: 10 mg Documented by: NRHOADS Sodium Chloride (Normal Saline 0.9%) 1,000 mls @ 150 mls/hr IV CONT GRAHAM Last Admin: 10/05/21 08:03 Dose: Not Given Documented by: MARLENY Sodium Chloride (Normal Saline 0.9%) 1,000 mls @ 1,000 mls/hr IV BOLUS ONE Stop: 10/05/21 08:50 Last Infusion: 10/05/21 11:10 Dose: 0 mls/hr Documented by: Admin: 10/05/21 08:00 Dose: 1,000 mls/hr Documented by: CYNTHIA Ketorolac Tromethamine (Ketorolac 30 Mg/Ml Vial) 15 mg IV NOW ONE Stop: 10/05/21 09:50 Last Admin: 10/05/21 10:09 Dose: 15 mg Documented by: MARLENY Reevaluation(s) Reevaluation #1: patient still has pain, mildly improved. Discussed trying an nonnarcotic if she sits narcotics just make her constipated and she does not wish to take them. She tolerate NSAIDs without issue. Time: 09:52 Reevaluation #2: Patient's pain has improved she was able to sleep it has not resolved. Discussed recommendations from vascular surgery as well as Gastroenterology. She is happy to follow up. We did note her urine has bacteria. She has had recurrent UTIs in the past sometimes frequently. She elects to go ahead start oral antibiotics today. She feels comfortable with this plan defers starting steroids particularly as Gastroenterology does recommend them at this time. She will try to follow-up with gastroenterology as outpatient. Time: 11:40 Consultations Consultation #1: Dr. Brewer, vascular surgery at [facility]. Patient's images were able to be reviewed SMA, celiac and LINSEY are patent and they state that there was no findings on her imaging that suggested a interventional need for ischemic colitis today or even on her past visits. Consultation #2: [facility]. Were able to review patient's chart. No discussion of ulcerative colitis and their chart. There have been discussion of ischemic colitis but reviewed vascular surgery does not feel that is likely the cause today. Her visit was in July of 2019. Recommends follow-up outpatient with Dr. Merino she is able to eat drink and is stable otherwise. They do not recommend starting any steroids at this time. Vital Signs Vital signs: Vital Signs - 8 hr 10/05/21 07:25 10/05/21 07:26 10/05/21 07:30 Temperature Pulse Rate 63 63 57 L Respiratory Rate Blood Pressure 147/75 H 143/72 H Pulse Oximetry 93 98 98 10/05/21 07:45 10/05/21 08:00 10/05/21 10:04 Temperature 98.2 F Pulse Rate 62 62 59 L Respiratory Rate 16 Blood Pressure 147/75 H 146/64 H Pulse Oximetry 98 99 92 10/05/21 10:05 10/05/21 10:30 10/05/21 11:00 Temperature Pulse Rate 57 L 62 61 Respiratory Rate Blood Pressure 152/69 H 131/58 L 128/58 L Pulse Oximetry 99 93 96 MDM - Abdominal Pain Lab Data Result diagrams: 10/05/21 07:35 10/05/21 07:35 Labs: Lab Results 10/05/21 10/05/21 10/05/21 Range/Units 07:35 07:35 07:35 WBC 6.6 (4.5-11.0) X10^3/uL RBC 4.59 (4.0-5.2) X10^6/uL Hgb 13.5 (12.0-16.0) g/dL Hct 40.3 (36-46) % MCV 87.7 (80-100) fL MCH 29.3 (26-34) PG MCHC 33.4 (30-36) % RDW 13.2 (11.6-14.8) % Plt Count 256 (150-400) X10^3/uL Neut % (Auto) 69.5 (50-75) % Lymph % (Auto) 22.5 L (25-40) % [place] % (Auto) 6.4 (3-14) % Eos % (Auto) 0.8 L (2-4) % Baso % (Auto) 0.8 (0-2) % Neut # (Auto) 4600 (6620-6082) /uL Lymph # (Auto) 1500 (9187-6405) /uL [place] # (Auto) 400 (0-900) /uL Eos # (Auto) 100 (0-450) /uL Baso # (Auto) 0 (0-100) /uL Sodium 138 (137-145) mmol/L Potassium 4.0 (3.4-5.1) mmol/L Chloride 105 (98-107) mmol/L Carbon Dioxide 28 (22-32) mmol/L BUN 18 H (7-17) mg/dL Creatinine 0.65 (0.52-1.04) mg/dL Estimated GFR > 60.0 (>60) mL/min BUN/Creatinine Ratio 27.7 H (6-22) Glucose 113 H (80-110) mg/dL Lactate 1.4 (0.7-2.1) mmol/L Calcium 9.3 (8.4-10.2) mg/dL Total Bilirubin 0.5 (0.2-1.3) mg/dL AST 26 (14-36) IU/L ALT 21 (<35) IU/L Alkaline Phosphatase 68 (38-126) U/L Total Protein 7.9 (6.3-8.2) g/dL Albumin 4.5 (3.5-5.0) g/dL Globulin 3.4 (1.7-4.1) g/dL Albumin/Globulin Ratio 1.3 (1.0-2.8) Lipase 161 (23-300) U/L Urine RBC (0-5/HPF) Urine WBC (0-5/HPF) Amorphous Sediment Urine Bacteria (None) Ur Culture Indicated? 10/05/21 Range/Units 08:24 WBC (4.5-11.0) X10^3/uL RBC (4.0-5.2) X10^6/uL Hgb (12.0-16.0) g/dL Hct (36-46) % MCV (80-100) fL MCH (26-34) PG MCHC (30-36) % RDW (11.6-14.8) % Plt Count (150-400) X10^3/uL Neut % (Auto) (50-75) % Lymph % (Auto) (25-40) % [place] % (Auto) (3-14) % Eos % (Auto) (2-4) % Baso % (Auto) (0-2) % Neut # (Auto) (7283-0048) /uL Lymph # (Auto) (1390-0622) /uL [place] # (Auto) (0-900) /uL Eos # (Auto) (0-450) /uL Baso # (Auto) (0-100) /uL Sodium (137-145) mmol/L Potassium (3.4-5.1) mmol/L Chloride (98-107) mmol/L Carbon Dioxide (22-32) mmol/L BUN (7-17) mg/dL Creatinine (0.52-1.04) mg/dL Estimated GFR (>60) mL/min BUN/Creatinine Ratio (6-22) Glucose (80-110) mg/dL Lactate (0.7-2.1) mmol/L Calcium (8.4-10.2) mg/dL Total Bilirubin (0.2-1.3) mg/dL AST (14-36) IU/L ALT (<35) IU/L Alkaline Phosphatase (38-126) U/L Total Protein (6.3-8.2) g/dL Albumin (3.5-5.0) g/dL Globulin (1.7-4.1) g/dL Albumin/Globulin Ratio (1.0-2.8) Lipase (23-300) U/L Urine RBC 1-5/hpf (0-5/HPF) Urine WBC 1-5/hpf (0-5/HPF) Amorphous Sediment 1+ Urine Bacteria Moderate (10-30) H (None) Ur Culture Indicated? Specimen cultured Point of care testing: Urine Dip Bedside Urine Glucose Negative Bedside Urine Bilirubin - Negative Bedside Urine Ketone - Negative Urine Specific [place] 1.030 Bedside Urine Occult Blood +++ Bedside Urine pH 6.0 Bedside Urine Protein +/- 15 Bedside Urine Urobilinogen - Negative Bedside Urine Nitrite - Negative Bedside Urine Leukocytes - Negative Esterase Imaging Data CT scan - abdomen/pelvis: Radiologist's Impression: Launch?[place] [id number] CT Scan Report Signed Patient: Lor Bess MR#: [id number] : 1950 Acct:[id number] Age/Sex: 71 / F Date of Service: 10/05/21 Loc: ED Accession Number: [id number] ?? Procedure: CT abdomen pelvis w con Ordering Provider: Glenny Riggs D.O. PROCEDURE:? CT ABDOMEN PELVIS W CON ? INDICATIONS:? abd pain, hx ischemic colitis ? TECHNIQUE:? After the administration of IV contrast, axial sections were acquired from the lung bases to the pubic symphysis.? Coronal and sagittal reformats were performed.? For radiation dose reduction, the following was used:? automated exposure control, adjustment of mA and/or kV according to patient size. ? COMPARISON:? [facility], CT, CT ABDOMEN PELVIS W CON, 03/30/2019, 23:05. ? FINDINGS:? Image quality:? Excellent.? ? Lung bases:? Unremarkable.? ? Heart:? No significant findings. ? ? ABDOMEN: Liver:? Diffuse hepatic steatosis is present without focal lesion. Gallbladder:? Unremarkable.? ? Biliary ducts:? Unremarkable.? ? Pancreas:? Unremarkable.? ? Spleen:? Unremarkable.? ? Adrenal Glands:? Unremarkable.? ? Kidneys and Ureters:? Unremarkable.? ? ? Stomach and Bowel:? Stomach, small bowel loops, and colon are nonobstructive.? There is a diffuse, minimal appearance of thickening with slight inflammatory change in the left colon.? Scattered diverticula are present. Peritoneum:? No abnormal intraperitoneal fluid.? No free air.? ? Ventral Wall: ? No hernia.? Abdominal Nodes:? No retroperitoneal or mesenteric adenopathy by size criteria.? Vessels:? Aorta and inferior vena cava are normal in size.? ? PELVIS: Pelvic Organs:? Unremarkable.? ? Bladder:? Unremarkable.? ? Pelvic Nodes: No enlarged lymph nodes.? Miscellaneous: No inguinal hernias are seen. ? ? ? Bones:? Unremarkable.? IMPRESSION:? ? Diffuse appearance of thickening with minimal inflammatory change in the left colon suggestive of colitis, possibly secondary to diverticulitis.? No evidence of abscess or free fluid. ? ? Dictated by: Brianna Moore M.D. on 10/05/2021 at 8:21 ? ? Approved by: Brianna Moore M.D. on 10/05/2021 at 9:06?? ECG Data Attestation: I personally reviewed and interpreted this ECG as follows: Prior ECG tracings: available for review Interpretation: Sinus bradycardia rate of 57 OH 170 QRS 86 and QTC of 410. T-wave inverted in 3. No other acute changes appreciated. Nonspecific change. Patient has prior from 03/17/2019 which does not show T-wave inversion in 3 but no other acute changes appreciated. MDM Narrative Medical decision making narrative: This is a 71-year-old female comes to the emergency department for complaint of abdominal pain with a history of diverticulitis and also ischemic colitis. Patient does not have acute abdomen on initial exam vitals are reassuring but imaging, labs including lactate were obtained. Patient states daily thing that is really helpful for pain as dicyclomine she defers other pain medications at this time. Patient's labs, vital signs are stable here in the department. She does have diffuse colitis on CT imaging. I discussed with her prior vascular group at [facility] a doctor Tai had seen the patient. They were able to view imaging today and stents there was no acute embolic change in the SMA, LINSEY are celiac and on their evaluation on prior visit did not feel that patient had any vascular occlusion. Spoke with gastroenterology at [facility] or patient had been seen patient had mentioned ulcerative colitis but they state that that is not part of their notes. They recommend follow-up outpatient with Dr. Merino for gastroenterology. No recommendations for steroids or other intervention currently. Patient's urine does show bacteria, she has had frequent UTIs and we discussed starting oral antibiotics which she is agreeable to. Since discharge home with oral dicyclomine and plan for ibuprofen as needed for pain we also discussed can take Tylenol with this. Discharge Plan Departure Patient Disposition: Home Clinical Impression: Colitis Instructions: DI for Colitis Activity Restrictions/Additional Instructions: I spoke with vascular surgery at [facility] as well as Gastroenterology at [facility]. They recommend follow-up with Dr. Merino gastroenterology at [facility]. Please call for an appointment. The vascular surgeon did review your imaging today and there are no large occlusions on your imaging. Your urine does show signs consistent with infection. Culture is pending. Please take antibiotics until completely gone. Prescription sent to [facility] in [place]. Please return for fevers, new or worsening abdominal pain, persistent vomiting, worsening bloody stools, large amounts of bloody stools, lightheadedness or passing out or other new or concerning symptoms. Prescriptions: New amoxicillin-pot clavulanate 875-125 mg tablet 1 tab PO Q12H Qty: 20 0RF dicyclomine 10 mg capsule 10 mg PO TID PRN (Reason: abdominal pain) Qty: 20 0RF No Action dextroamphetamine-amphetamine [Adderall] 10 mg tablet 10 mg PO BID 0RF Rx Instructions: administer doses at least 4-6 hours apart fluoxetine [Prozac] 10 mg Capsule 10 mg PO DAILY 0RF dicyclomine 10 mg Capsule 10 mg PO Q6HR PRN (Reason: Spasms) Qty: 30 0RF Fiorinal 0RF oxycodone 5 mg tablet 5 mg PO Q4H PRN (Reason: pain) Qty: 20 0RF Referrals: Michelle Thompson PA-C [Primary Care Provider] - Juventino Merino MD [Non-Staff] -
[2021-10-05 07:50] LABS: Add Manual Diff / Slide Review NO; Basophils Absolute Auto 0 /uL (0-100); Basophils Percent Auto 0.8 % (0-2); Eosinophils Absolute Auto 100 /uL (0-450); Eosinophils Percent Auto 0.8 % (2-4); Hematocrit 40.3 % (36-46); Hemoglobin 13.5 g/dL (12.0-16.0); Lymphocytes Absolute Auto 1500 /uL (1100-4500); Lymphocytes Percent Auto 22.5 % (25-40); Mean Corpuscular HGB Conc 33.4 % (30-36); Mean Corpuscular Hemoglobin 29.3 PG (26-34); Mean Corpuscular Volume 87.7 fL (80-100); Monocytes Absolute Auto 400 /uL (0-900); Monocytes Percent Auto 6.4 % (3-14); Neutrophils Absolute Auto 4600 /uL (1500-7000); Neutrophils Percent Auto 69.5 % (50-75); Platelet Count 256 X10^3/uL (150-400); Red Blood Cell Count 4.59 X10^6/uL (4.0-5.2); Red Cell Distribution Width 13.2 % (11.6-14.8); White Blood Cell Count 6.6 X10^3/uL (4.5-11.0)
--- NOTE | 2021-10-05 07:51 | DI.CT.S_ITS ---
PROCEDURE: CT ABDOMEN PELVIS W CON INDICATIONS: abd pain, hx ischemic colitis TECHNIQUE: After the administration of IV contrast, axial sections were acquired from the lung bases to the pubic symphysis. Coronal and sagittal reformats were performed. For radiation dose reduction, the following was used: automated exposure control, adjustment of mA and/or kV according to patient size. COMPARISON: [facility], CT, CT ABDOMEN PELVIS W CON, 03/30/2019, 23:05. FINDINGS: Image quality: Excellent. Lung bases: Unremarkable. Heart: No significant findings. ABDOMEN: Liver: Diffuse hepatic steatosis is present without focal lesion. Gallbladder: Unremarkable. Biliary ducts: Unremarkable. Pancreas: Unremarkable. Spleen: Unremarkable. Adrenal Glands: Unremarkable. Kidneys and Ureters: Unremarkable. Stomach and Bowel: Stomach, small bowel loops, and colon are nonobstructive. There is a diffuse, minimal appearance of thickening with slight inflammatory change in the left colon. Scattered diverticula are present. Peritoneum: No abnormal intraperitoneal fluid. No free air. Ventral Wall: No hernia. Abdominal Nodes: No retroperitoneal or mesenteric adenopathy by size criteria. Vessels: Aorta and inferior vena cava are normal in size. PELVIS: Pelvic Organs: Unremarkable. Bladder: Unremarkable. Pelvic Nodes: No enlarged lymph nodes. Miscellaneous: No inguinal hernias are seen. Bones: Unremarkable. IMPRESSION: Diffuse appearance of thickening with minimal inflammatory change in the left colon suggestive of colitis, possibly secondary to diverticulitis. No evidence of abscess or free fluid. Dictated by: Brianna Moore M.D. on 10/05/2021 at 8:21 Approved by: Brianna Moore M.D. on 10/05/2021 at 9:06
[2021-10-05 08:00] LABS: Alanine Aminotransferase 21 IU/L (<35); Albumin 4.5 g/dL (3.5-5.0); Albumin Globulin Ratio 1.3 (1.0-2.8); Alkaline Phosphatase 68 U/L (38-126); Aspartate Aminotransferase 26 IU/L (14-36); BUN Creatinine Ratio 27.7 (6-22); Bilirubin Total 0.5 mg/dL (0.2-1.3); Blood Urea Nitrogen 18 mg/dL (7-17); Calcium 9.3 mg/dL (8.4-10.2); Carbon Dioxide 28 mmol/L (22-32); Chloride 105 mmol/L (98-107); Estimated Glomerular Filt Rate > 60.0 mL/min (>60); Globulin 3.4 g/dL (1.7-4.1); Glucose 113 mg/dL (80-110); HEMOLYSIS < 15 (0-50); Lipase 161 U/L (23-300); Sodium 138 mmol/L (137-145); Total Protein 7.9 g/dL (6.3-8.2)
[2021-10-05] MEDS: SODIUM CHLORIDE 0.9% 1,000 ML 1000 ML IV (08:00)
[2021-10-05] MEDS: DICYCLOMINE 10 MG CAPSULE PO (08:00)
[2021-10-05 08:03] LABS: Lactate (Lactic Acid) 1.4 mmol/L (0.7-2.1)
[2021-10-05 08:37] LABS: Amorphous Sediment Urine 1+; Bacteria Urine Moderate (10-30); Culture Indicated Urine Specimen Cultured; RBC Urine 1-5/HPF (0-5/HPF); WBC Urine 1-5/HPF (0-5/HPF)
[2021-10-05] MEDS: KETOROLAC 30 MG/ML VIAL 15 MG IV (10:09)
== END 2021-10-05 11:51 | disposition home or self-care (01) ==
PROVIDERS: Emergency Provider Emergency Medicine; PCP Physician Assistant
DX: K52.9 Noninfective gastroenteritis and colitis, unspecified (principal); Z87.891 Personal history of nicotine dependence
CPT/HCPCS: 36415; 74177; 80053; 81003; 81015; 83605; 83690; 85025; 87086; 93005; 96361; 96374; 99284; J1885

== ENCOUNTER → 2021-10-29 11:56 | Outpatient (ROUT) | payer MEDICARE, SELFPAY ==
[2021-04-07 17:43] VITALS: BMI 25.4
[2021-10-29 12:31] LABS: COVID19 -Nasal RAPID Negative (Negative)
== END ==
PROVIDERS: PCP Physician Assistant; Visit Provider Physician Assistant
DX: Z20.822 Contact with and (suspected) exposure to COVID-19 (principal)
CPT/HCPCS: 87635

== ENCOUNTER → 2021-12-01 09:01 | Outpatient (CLI) | payer MEDICARE, SELFPAY ==
[2021-04-07 17:43] VITALS: BMI 25.4
[2021-12-01 11:21] LABS: COVID19 -Nasal RAPID Negative (Negative)
== END ==
PROVIDERS: PCP Physician Assistant; Visit Provider Surgery
DX: Z20.822 Contact with and (suspected) exposure to COVID-19 (principal); Z01.812 Encounter for preprocedural laboratory examination
CPT/HCPCS: 87635; C9803

== ENCOUNTER → 2021-12-09 11:47 | Outpatient (ROUT) | payer MEDICARE, SELFPAY ==
[2021-04-07 17:43] VITALS: BMI 25.4
[2021-12-09 12:10] LABS: COVID19 -Nasal RAPID Negative (Negative)
== END ==
PROVIDERS: PCP Physician Assistant; Visit Provider Physician Assistant
DX: Z20.822 Contact with and (suspected) exposure to COVID-19 (principal)
CPT/HCPCS: 87635

== ENCOUNTER → 2022-06-17 14:55 | Outpatient (CLI) | payer MEDICARE, SELFPAY ==
[2021-04-07 17:43] VITALS: BMI 25.4
== END ==
PROVIDERS: PCP Physician Assistant; Visit Provider Registered Nurse
DX: R34 Anuria and oliguria (principal)
CPT/HCPCS: 87086

== ENCOUNTER → 2022-06-17 15:29 | Outpatient (CLI) | payer MEDICARE, SELFPAY ==
[2021-04-07 17:43] VITALS: BMI 25.4
--- NOTE | 2022-06-17 15:35 | DI.RAD.S_ITS ---
PROCEDURE: XR LUMBAR SPINE 2-3V INDICATIONS: Lumbar pain TECHNIQUE: 3 views of the lumbar spine were acquired. COMPARISON: None. FINDINGS: Bones: 5 [id number] vertebrae are present. There is normal bony alignment. No vertebral body compression fractures. No suspicious bony lesions. There is [id number] degenerative disc disease throughout the lumbar spine. Severe facet arthropathy at L4-L5 and L5-S1. Soft tissues: Overlying bowel gas pattern is normal. No suspicious soft tissue calcifications. IMPRESSION: 1. Severe facet arthropathy at L4-L5 and L5-S1. 2. [id number] degenerative disc disease. Dictated by: Bailey Hughes M.D. on 06/17/2022 at 16:17 Approved by: Bailey Hughes M.D. on 06/17/2022 at 16:19
== END ==
PROVIDERS: PCP Physician Assistant; Referring Provider Registered Nurse; Visit Provider Registered Nurse
DX: M47.816 Spondylosis without myelopathy or radiculopathy, lumbar region (principal); M47.817 Spondylosis without myelopathy or radiculopathy, lumbosacral region; M51.36 Other intervertebral disc degeneration, lumbar region; M54.50 Low back pain, unspecified; R34 Anuria and oliguria
CPT/HCPCS: 72100; 87086

== ENCOUNTER → 2022-07-22 10:41 | Outpatient (CLI) | payer MEDICARE, SELFPAY ==
[2021-04-07 17:43] VITALS: BMI 25.4
[2022-07-22 12:36] LABS: Add Manual Diff / Slide Review NO; Basophils Absolute Auto 100 /uL (0-100); Basophils Percent Auto 1.3 % (0-2); Eosinophils Absolute Auto 200 /uL (0-450); Eosinophils Percent Auto 3.4 % (2-4); Hematocrit 41.5 % (36-46); Hemoglobin 13.8 g/dL (12.0-16.0); Lymphocytes Absolute Auto 1600 /uL (1100-4500); Lymphocytes Percent Auto 30.1 % (25-40); Mean Corpuscular HGB Conc 33.2 % (30-36); Mean Corpuscular Hemoglobin 29.4 PG (26-34); Mean Corpuscular Volume 88.6 fL (80-100); Monocytes Absolute Auto 400 /uL (0-900); Monocytes Percent Auto 8.2 % (3-14); Neutrophils Absolute Auto 3000 /uL (1500-7000); Platelet Count 242 X10^3/uL (150-400); Red Blood Cell Count 4.69 X10^6/uL (4.0-5.2); Red Cell Distribution Width 13.5 % (11.6-14.8); White Blood Cell Count 5.2 X10^3/uL (4.5-11.0)
[2022-07-22 12:57] LABS: Alanine Aminotransferase 21 IU/L (<35); Albumin 4.5 g/dL (3.5-5.0); Albumin Globulin Ratio 1.3 (1.0-2.8); Alkaline Phosphatase 86 U/L (38-126); Aspartate Aminotransferase 25 IU/L (14-36); Bilirubin Total 0.8 mg/dL (0.2-1.3); Blood Urea Nitrogen 17 mg/dL (7-17); Calcium 9.2 mg/dL (8.4-10.2); Carbon Dioxide 27 mmol/L (22-32); Chloride 102 mmol/L (98-107); Cholesterol 276 mg/dL (140-199); Estimated Glomerular Filt Rate > 60 mL/min (>60); Globulin 3.5 g/dL (1.7-4.1); Glucose 85 mg/dL (80-110); HDL Cholesterol 49 mg/dL (40-60); HEMOLYSIS < 15 (0-50); LDL Cholesterol Calculated 208 mg/dL (<100); Potassium 3.9 mmol/L (3.4-5.1); Sodium 141 mmol/L (137-145); Triglycerides 95 mg/dL (35-150)
[2022-07-22 13:15] LABS: Hemoglobin A1C% w Est Avg Glu 5.5 % (4.0-6.0)
[2022-07-22 15:21] LABS: Vitamin D 25 Hydroxy (D3) 63.5 ng/mL (30.0-100.0)
== END ==
PROVIDERS: PCP Family Medicine; Referring Provider Family Medicine; Visit Provider Family Medicine
DX: E03.9 Hypothyroidism, unspecified (principal); R73.9 Hyperglycemia, unspecified; E78.5 Hyperlipidemia, unspecified; E55.9 Vitamin D deficiency, unspecified; K55.9 Vascular disorder of intestine, unspecified
CPT/HCPCS: 36415; 80053; 80061; 82306; 83036; 84443; 85025

== ENCOUNTER → 2022-11-23 08:56 | Outpatient (CLI) | payer MEDICARE, SELFPAY ==
[2021-04-07 17:43] VITALS: BMI 25.4
[2022-11-23 20:49] LABS: Alanine Aminotransferase 22 IU/L (<35); Albumin 4.5 g/dL (3.5-5.0); Albumin Globulin Ratio 1.5 (1.0-2.8); Alkaline Phosphatase 62 U/L (38-126); Aspartate Aminotransferase 24 IU/L (14-36); Bilirubin Total 0.6 mg/dL (0.2-1.3); Blood Urea Nitrogen 19 mg/dL (7-17); Calcium 9.6 mg/dL (8.4-10.2); Carbon Dioxide 29 mmol/L (22-32); Chloride 101 mmol/L (98-107); Cholesterol 253 mg/dL (140-199); Estimated Glomerular Filt Rate > 60 mL/min (>60); Globulin 3.1 g/dL (1.7-4.1); Glucose 95 mg/dL (80-110); HDL Cholesterol 56 mg/dL (40-60); HEMOLYSIS < 15 (0-50); LDL Cholesterol Calculated 177 mg/dL (<100); Sodium 138 mmol/L (137-145); Total Protein 7.6 g/dL (6.3-8.2); Triglycerides 100 mg/dL (35-150)
[2022-11-23 23:23] LABS: x Labcorp Estim. Avg Glu (eAG) 120 mg/dL (.); x Labcorp Hemoglobin A1c 5.8 % (4.8-5.6)
== END ==
PROVIDERS: PCP Family Medicine; Referring Provider Family Medicine; Visit Provider Family Medicine
DX: E78.2 Mixed hyperlipidemia (principal); R73.9 Hyperglycemia, unspecified
CPT/HCPCS: 36415; 80053; 80061; 83036